=== PATIENT | female | born 1950 | race Caucasian/White ===

== ENCOUNTER 2016-06-28 11:58 | Emergency (ER) | payer OTHER ==
[~2016-06-28] VITALS: Ht 157.5 cm; Wt 62.1 kg
[~2016-06-28 11:58] MED LIST: ACET-1175 PO; ASCO1CAP3 PO; ASPCH81X PO; BUPRTAB51 PO; CALC-393 PO; CHOL100010 PO; CYAN500T13 PO; DOCU100C31 PO; FLNIN NAE; FLUV100T2 PO; FLUV1CAP PO; GLUC500C4 PO; LORA10CA2 PO; MELO15TA3 PO; PRED1SUS3 OPL; PRLSR20 PO; PYRI100T6 PO; SYN88 PO
[2016-06-28 12:07] VITALS: TEMP 36.6; Ht 157.5 cm; Wt 62.1 kg
[2016-06-28] MEDS ORDERED: FAMO20TA11 PO (12:25)
[2016-06-28] MEDS ORDERED: LISI-729 PO (12:25)
[2016-06-28] MEDS ORDERED: LIDOCAINE/EPINEPHRINE 1% 20 ML VIAL INFIL ONE (12:45)
--- NOTE | 2016-06-28 13:25 | DIAGNOSTIC IMAGING REPORT ---
CT SCAN OF THE CERVICAL SPINE CLINICAL HISTORY: Fall. Neck pain COMPARISON STUDY: No priors. TECHNIQUE: CT scan of the cervical spine is performed from the skull base to the upper thoracic spine. Images are reviewed in the axial, sagittal, and coronal planes. IV contrast was not administered for this examination. CT DOSE: 482.55 mGycm FINDINGS: Skeletal structures: The skeletal structures are osteopenic. There is no evidence of fracture or subluxation involving the cervical spine. Vertebral body height is maintained. There is minimal anterolisthesis of C3-C4 and C4-C5. Alignment is otherwise preserved. There is straightening of cervical lordosis. The odontoid process and lateral masses are intact. The atlantoaxial articulation is preserved noting advanced productive degenerative change. The spinous processes appear intact. Anterior osteophytes are seen throughout. There is mild to moderate multilevel cervical spondylosis. Uncovertebral and facet arthropathy contributing to neural foraminal narrowing at several levels. Intervertebral discs: There is moderate degenerative disc space narrowing from C4-C5 through C6-C7. Central canal: Posterior disc osteophyte complexes at C4-C5, C5-C6, and C6-C7 likely contribute to mild acquired compromise of the central canal. Soft tissues: The prevertebral and paraspinous soft tissues are within normal limits. Calvarium: The visualized calvarium at the skull base appears intact. Brain parenchyma: Partially visualized brain parenchyma the skull base is within normal limits. Sinuses and mastoids: The visualized paranasal sinuses are clear. The mastoid air cells are well pneumatized. Lung apices: Clear as visualized. IMPRESSION: 1. There is no evidence of fracture or subluxation involving the cervical spine. 2. Osteopenia and spondylotic change as above. Electronically signed by: Del Rodriguez M.D. 06/28/2016 1:24 PM Dictated Date/Time: 06/28/2016 1:21 PM
--- NOTE | 2016-06-28 13:31 | DIAGNOSTIC IMAGING REPORT ---
HEAD CT NONCONTRAST CT DOSE: 720.95 mGycm HISTORY: Scalp injury. pain s/p fall TECHNIQUE: Multiaxial CT images of the head were performed without the use of intravenous contrast. Automated exposure control was utilized for this study. Comparison: None. Findings: The paranasal sinuses and mastoid air cells are clear. The calvarium and skull base are intact. The ventricles and sulci are within normal limits. There is no mass, hematoma, midline shift, or acute infarct. Left lateral scalp laceration. 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 Small hypodensity within the left subinsular white matter also likely represents an old infarct. Impression: No acute intracranial abnormality. Left lateral scalp laceration Electronically signed by: Serg Gillette M.D. 06/28/2016 1:29 PM Dictated Date/Time: 06/28/2016 1:20 PM
--- NOTE | 2016-06-28 14:28 | EMERGENCY ROOM VISIT NOTE ---
ED Visit Note First contact with patient: 12:10 Chief Complaint: Scalp Laceration History of Present Illness: Patient is a 66-year-old female who presents to the emergency Department for evaluation of a scalp laceration. She reports that she lost her balance while ambulating down steps causing her to fall. She struck her head on the banister. She did not lose consciousness. She was able to gather herself from the ground. The patient complains of pain to the site of injury on the LEFT-sided scalp. She reports a moderate amount of bleeding initially. The patient's tetanus status up-to-date. She denies any blurry vision, double vision, slurred speech, facial droop, unilateral weakness/ numbness, neck stiffness, back pain, chest pain, abdominal pain, or extremity pain. She rates her current discomfort as a 3/10. The patient does not utilize blood thinners. Medications: Reviewed and discussed with the patient. Allergies: Bactrim, Trolamine, Tuberculin Purified Protein Derivat PMH: No pertinent past medical history. SHx: Patient is a 66-year-old female who lives locally. ROS: All pertinent positive and negative review of systems are appropriately documented in the History of Present Illness. Physical Exam: VITAL SIGNS - Vital signs and nursing notes were reviewed. GENERAL - 66-year-old female appearing her stated age. Communicates well with provider and answers questions appropriately. SKIN - There is a 4.0 cm laceration noted to the LEFT sided scalp. The edges gape apart with traction. There is no active bleeding appreciated. No deep structures including vessels, musculature, or bony structures are appreciated. HEAD - Normocephalic. No Matthews's Sign or Raccoon's Eyes. No depressed skull fractures palpable. EYES - PERRL with EOMI bilaterally. Without subconjunctival hemorrhage. Palpebral conjunctiva pink and moist with no injection. EARS - No deformities of external structures noted on gross examination bilaterally. No hemotympanum present. No tympanic perforation noted. Handle of malleus, umbo, cone of light, pars tensa/flaccid all easily visualized. NOSE - Midline and without cyanosis. No epistaxis or clear watery discharge noted. Septum midline without deviation. No septal hematoma noted. No overlying ecchymosis noted. MOUTH/OROPHARYNX - Without perioral cyanosis. Tongue midline with equal elevation of palate bilaterally. No blood noted in the oropharynx. No tonsillar hypertrophy, erythema, or exudates noted. No dental fractures noted. NECK - FROM assessed. No nuchal rigidity. No tenderness to palpation over the cervical spinous processes. No cervical paraspinal muscle tenderness noted. LUNGS - Chest wall symmetric without accessory muscle use, intercostals retractions, or central cyanosis. Normal vesicular breath sounds CTA B/L. No wheezes, rales, or rhonchi appreciated. CARDIAC - RRR with S1/S2. No murmur, rubs, or gallops appreciated. ABDOMEN - Abdominal contour flat without pulsations or visible masses. BS normoactive all four quadrants. EXTREMITIES - No gross deformities noted of the extremities. +3/5 radial and dorsalis pedis pulses palpated throughout. FROM with no tremors, fasciculations , or clonus noted on PROM throughout. +5/5 strength noted in UE/LE bilaterally. NEUROLOGIC - Cranial nerves II through XII grossly intact. Sensory intact to light touch throughout. Patellar reflexes +2/4. Patient able to perform rapid alternating movements appropriately. Negative Romberg and Pronator Drift. PSYCH - A&Ox3 and cooperates fully with examiner. Pt is very pleasant and interacts well with examiner. IMAGING: CHEST ONE VIEW PORTABLE CLINICAL HISTORY: Chest pain. COMPARISON STUDY: Chest CT March 27, 2016. FINDINGS: Lung volumes are normal. There is no pneumothorax or pleural effusion. There is no consolidation to suggest pneumonia. Cardiac size is at the upper limits of normal. There is no evidence of pulmonary edema. IMPRESSION: No acute cardiopulmonary findings. CT SCAN OF THE CERVICAL SPINE CLINICAL HISTORY: Fall. Neck pain COMPARISON STUDY: No priors. TECHNIQUE: CT scan of the cervical spine is performed from the skull base to the upper thoracic spine. Images are reviewed in the axial, sagittal, and coronal planes. IV contrast was not administered for this examination. CT DOSE: 482.55 mGycm FINDINGS: Skeletal structures: The skeletal structures are osteopenic. There is no evidence of fracture or subluxation involving the cervical spine. Vertebral body height is maintained. There is minimal anterolisthesis of C3-C4 and C4-C5. Alignment is otherwise preserved. There is straightening of cervical lordosis. The odontoid process and lateral masses are intact. The atlantoaxial articulation is preserved noting advanced productive degenerative change. The spinous processes appear intact. Anterior osteophytes are seen throughout. There is mild to moderate multilevel cervical spondylosis. Uncovertebral and facet arthropathy contributing to neural foraminal narrowing at several levels. Intervertebral discs: There is moderate degenerative disc space narrowing from C4-C5 through C6-C7. Central canal: Posterior disc osteophyte complexes at C4-C5, C5-C6, and C6-C7 likely contribute to mild acquired compromise of the central canal. Soft tissues: The prevertebral and paraspinous soft tissues are within normal limits. Calvarium: The visualized calvarium at the skull base appears intact. Brain parenchyma: Partially visualized brain parenchyma the skull base is within normal limits. Sinuses and mastoids: The visualized paranasal sinuses are clear. The mastoid air cells are well pneumatized. Lung apices: Clear as visualized. IMPRESSION: 1. There is no evidence of fracture or subluxation involving the cervical spine. 2. Osteopenia and spondylotic change as above. ED Course: Patient was seen and evaluated by myself. CT of head and cervical spine were obtained. Imaging results above. Imaging results were discussed with the patient who acknowledges understanding. Patient had no focal neurological deficits. Patient's exam is otherwise unremarkable. Patient reports no headaches , visual disturbances, nausea, vomiting, or over-lethargy. Costs and benefits of performing primary wound closure versus no repair were discussed with the patient who verbalizes understanding. Verbal consent was obtained prior to performing the procedure. 3.0 cc of 1% buffered lidocaine was used to anesthetize the scalp laceration. The wound was cleansed and prepped in the typical sterile fashion utilizing normal saline and Betadine. The wound was sterilely draped. Once proper anesthetization was established, the wound was further examined and demonstrated a full-thickness laceration without deep structures noted. The wound was copiously irrigated with normal saline and Betadine. The wound was closed using 5 francisca with the wound edges being well approximated. Patient tolerated the procedure well. No complications were met. The wound was cleansed and dressed with a Bacitracin dressing. Patient educated on worrisome symptoms for return visit to the Emergency Department. Patient discharged to home in good condition. Impression: Scalp Laceration, Fall Discharge Instructions: You have received 5 francisca on your scalp. These francisca are NOT dissolvable and WILL need to be removed by a health care provider in 10 days. You can return to the Emergency Department or contact your Primary Care Provider to have these francisca removed. Proper wound care is essential for adequate wound healing and infection prevention. You can shower and clean the wound with soap and water. Do scour over the wound, pat dry with a towel. Do not submerse the wound until the francisca have been removed. You can use an antibiotic ointment with a dressing over the wound for the next 3-4 days. After this time you may leave the wound dry and open to the air. If crust develops over the wound you can use a Q-tip to apply a 1:1 peroxide:water solution to clean the wound. Look for signs of infection of the wound including: increased pain, swelling, foul discharge, streaking, or increased temperature. If any of these are noticed you should return to the Emergency Department for further assessment and treatment. As with any laceration you may have received nerve damage to the surrounding tissues. This damage may or may not be permanent. For pain control, you can use the following [id number] medicines (if >12 yo): - Regular strength (325mg/tab) Tylenol (acetaminophen) 2 tabs every 4-6 hours as needed. Do not exceed 12 tablets in a 24 hour period. Avoid taking more than 4 grams (4000 mg) of Tylenol per day. This includes any other sources of acetaminophen you may take on a regular basis. - Regular strength (200 mg/tab) Advil (ibuprofen) 1-2 tabs every 4-6 hours as needed. Do not exceed a dose of 3200 mg per day. Return to the emergency department if your symptoms worsen despite treatment course outlined above. Problem List Medical Problems: (1) Anxiety Status: Chronic (2) Gastroesophageal reflux disease Status: Chronic (3) Hypothyroidism Status: Chronic Current/Historical Medications Scheduled Acetaminophen (Tylenol), 650 MG PO 2-3X/DAY Ascorbic Acid (Vitamin C), 1 CAP PO QAM Aspirin (Aspirin Chewable), 81 MG PO DAILY AFTERNOON Bupropion Hcl (Wellbutrin Xl), 450 MG PO QAM Calcium Carbonate (Calcium), 1 TAB PO BID Cholecalciferol (Vitamin D), 1,000 INTER.UNIT PO QAM Cyanocobalamin (Vitamin B12 500MCG), 2 TAB PO QAM Docusate Sodium (Docusate Sodium), 2 CAP PO QAM Famotidine (Pepcid), 20 MG PO DAILY Fluvoxamine Maleate (Luvox), 150 MG PO QAM Fluvoxamine Maleate (Fluvoxamine Maleate Er), 1 CAP PO QPM Glucosamine Sulfate (Glucosamine), 500 MG PO BID Levothyroxine (Synthroid *), 0.088 MG PO QAM Lisinopril (Zestril), 2.5 MG PO DAILY Loratadine (Claritin), 10 MG PO QPM Omeprazole (Prilosec), 20 MG PO DAILY Pyridoxine Hcl (Pyridoxine Hcl), 1 TAB PO QAM Allergies Coded Allergies: Apple (Verified Allergy, Intermediate, RAW APPLE-THROAT ITCHES, 06/28/16) RAW APPLES Bath (Verified Allergy, Intermediate, RAW STRAWBERRY-THROAT ITCHES, 06/28/16) RAW STRAWBERRIES Sulfamethoxazole (Verified Allergy, Intermediate, HIVES, 06/28/16) Trimethoprim (Verified Allergy, Intermediate, HIVES, 06/28/16) Trolamine (Verified Allergy, Intermediate, RASH, 06/28/16) Replaces CERUMENEX JUNITO Tuberculin Purified Protein Derivat (Verified Allergy, Mild, RASH, 06/28/16 ) Vital Signs Date Time Temp Pulse Resp B/P Pulse Ox O2 Delivery O2 Flow Rate FiO2 06/28/16 14:35 82 16 119/79 98 06/28/16 12:07 36.6 77 20 129/88 96 Room Air Departure Information Impression Primary Impression: Laceration of scalp Additional Impression: Fall down stairs Dispostion Home / Self-Care Condition GOOD Referrals Chasidy Dubois M.D. (PCP) Patient Instructions ED Laceration Scalp Stitch Or Stap, My [facility] Additional Instructions You have received 5 francisca on your scalp. These francisca are NOT dissolvable and WILL need to be removed by a health care provider in 10 days. You can return to the Emergency Department or contact your Primary Care Provider to have these francisca removed. Proper wound care is essential for adequate wound healing and infection prevention. You can shower and clean the wound with soap and water. Do scour over the wound, pat dry with a towel. Do not submerse the wound until the francisca have been removed. You can use an antibiotic ointment with a dressing over the wound for the next 3-4 days. After this time you may leave the wound dry and open to the air. If crust develops over the wound you can use a Q-tip to apply a 1:1 peroxide:water solution to clean the wound. Look for signs of infection of the wound including: increased pain, swelling, foul discharge, streaking, or increased temperature. If any of these are noticed you should return to the Emergency Department for further assessment and treatment. As with any laceration you may have received nerve damage to the surrounding tissues. This damage may or may not be permanent. For pain control, you can use the following [id number] medicines (if >12 yo): - Regular strength (325mg/tab) Tylenol (acetaminophen) 2 tabs every 4-6 hours as needed. Do not exceed 12 tablets in a 24 hour period. Avoid taking more than 4 grams (4000 mg) of Tylenol per day. This includes any other sources of acetaminophen you may take on a regular basis. - Regular strength (200 mg/tab) Advil (ibuprofen) 1-2 tabs every 4-6 hours as needed. Do not exceed a dose of 3200 mg per day. Return to the emergency department if your symptoms worsen despite treatment course outlined above. Problem Qualifiers Primary Impression: Laceration of scalp Encounter type: initial encounter Qualified Codes: S01.01XA - Laceration without foreign body of scalp, initial encounter Additional Impression: Fall down stairs Encounter type: initial encounter Qualified Codes: W10.8XXA - Fall (on) ( from) other stairs and steps, initial encounter
[2016-06-28 14:35] VITALS: BP 119/79; PULSE 82; O2SAT 98
[2016-11-12] MEDS ORDERED: CALC-354 PO (12:00)
[2016-11-12] MEDS ORDERED: FLUV100T12 PO (12:00)
[2016-11-12] MEDS ORDERED: iron sulfate PO (12:01)
[2016-11-12] MEDS ORDERED: CALC0.2510 PO (12:01)
== END 2016-06-28 14:39 | disposition home or self-care (01) ==
LOC: C.EDB 12:00 → C.EDD 14:39
DX: S01.01XA Laceration without foreign body of scalp, initial encounter (principal); W10.9XXA Fall (on) (from) unspecified stairs and steps, initial encounter; F41.9 Anxiety disorder, unspecified; K21.9 Gastro-esophageal reflux disease without esophagitis; E03.9 Hypothyroidism, unspecified; Z79.82 Long term (current) use of aspirin; Z79.899 Other long term (current) drug therapy

== ENCOUNTER 2016-07-09 17:42 | Emergency (ER) | payer OTHER ==
[~2016-07-09] VITALS: Ht 157.5 cm; Wt 60.9 kg
[~2016-07-09 17:42] MED LIST changes: +FAMO20TA11 PO; -FLNIN NAE; +LISI-729 PO; -MELO15TA3 PO; -PRED1SUS3 OPL
[2016-07-09 17:45] VITALS: BP 113/75; PULSE 92; TEMP 37.1; O2SAT 94; Ht 157.5 cm; Wt 60.9 kg
[2016-07-09] MEDS ORDERED: LEVO88TA3 PO (18:11)
[2016-07-09] MEDS ORDERED: CHOLTAB5 PO (18:12)
--- NOTE | 2016-07-10 20:50 | EMERGENCY ROOM VISIT NOTE ---
ED Visit Note First contact with patient: 17:47 CHIEF COMPLAINT: Staple removal. HISTORY OF PRESENT ILLNESS: Ms. Yu is a 66-year-old white female who ambulates into the ED requesting staple removal for a scalp laceration she sustained during a fall on June 28, 12 days ago. She reports since that time she feels like the laceration has been feeling well and she has not had any pain, swelling, redness, or drainage from the wound. Additionally she reports she has had no signs of head injury including headaches , dizziness, lightheadedness, nausea, vomiting or any abnormal neurological symptoms. PHYSICAL EXAM: Vital Signs: Date Time Temp Pulse Resp B/P Pulse Ox O2 Delivery O2 Flow Rate FiO2 07/09/16 17:45 37.1 92 17 113/75 94 Room Air General: 66-year-old white female in no acute distress, nontoxic-appearing, afebrile and hemodynamically stable. Neurological: Awake, alert and oriented 3. Answering questions appropriately and following commands. Good hand eye coordination. Normal gait. No focal motor sensory deficits. Skin: Clean dry and intact wound on the left parietal area without signs of infection (erythema, swelling, tenderness, purulent drainage) ED COURSE: Patient is assessed as noted above. 5 francisca were removed without any difficulty and there was no separation of the wound edges. Patient was educated about tonight's findings and instructed on her treatment plan; she verbalizes understanding and agreement with this plan. DISPOSITION: Patient discharged home in stable condition. CLINICAL IMPRESSION: Staple removal; Well healing laceration. PLAN: Patient was encouraged to continue her current wound care instructions and continue to watch for signs of infection or head injury. Patient was encouraged return the ED or follow-up with family physician for any signs of infection or head injury or any new/concerning symptoms.
[2016-11-12] MEDS ORDERED: CALC-354 PO (12:00)
[2016-11-12] MEDS ORDERED: FLUV100T12 PO (12:00)
[2016-11-12] MEDS ORDERED: CALC0.2510 PO (12:01)
[2016-11-12] MEDS ORDERED: iron sulfate PO (12:01)
== END 2016-07-09 18:07 | disposition home or self-care (01) ==
LOC: C.EDB 17:43 → C.EDD 18:07
DX: Z48.02 Encounter for removal of sutures (principal); S01.01XD Laceration without foreign body of scalp, subsequent encounter; W19.XXXD Unspecified fall, subsequent encounter

== ENCOUNTER → 2016-07-11 | Outpatient (CLI) | payer OTHER ==
[~2016-07-11] MED LIST changes: +CALC-354 PO; +CALC0.2510 PO; +CHOLTAB5 PO; +FLUV100T12 PO; +LEVO88TA3 PO; +iron sulfate PO
[2016-07-11 16:38] LABS: BASO % 0.4 %; BASO ABS # 0.02 K/uL (0-0.2); COMPLETE YES; EOS % 1.9 %; HEMATOCRIT 32.7 % (37-47); IG% 0.2 %; LYMPH % 25.8 %; LYMPH ABS # 1.47 K/uL (1.2-3.4); MEAN CELL VOLUME 92.1 fL (80-100); MEAN CORPUSCULAR HEMOGLOBIN 29.6 pg (25-34); MEAN CORPUSCULAR HGB CONC 32.1 g/dl (32-36); MEAN PLATELET VOLUME 8.4 fL (7.4-10.4); MONO % 13.5 %; NEUT % 58.2 %; PLATELET COUNT 308 K/uL (130-400); RED BLOOD COUNT 3.55 M/uL (4.2-5.4); WHITE BLOOD COUNT 5.69 K/uL (4.8-10.8)
[2016-07-11 16:59] LABS: BLOOD UREA NITROGEN 24 mg/dl (7-18); BUN/CREATININE RATIO 21.5 (10-20); CALCIUM 8.9 mg/dl (8.5-10.1); CARBON DIOXIDE 26 mmol/L (21-32); CHLORIDE 106 mmol/L (98-107); GLUCOSE 70 mg/dl (70-99); POTASSIUM 4.3 mmol/L (3.5-5.1); SODIUM 141 mmol/L (136-145)
[2016-07-11 17:02] LABS: PHOSPHORUS 2.6 mg/dl (2.5-4.9)
== END | disposition home or self-care (01) ==
LOC: C.LAB 15:31
PROVIDERS: ATTEND Family Medicine
DX: I12.9 Hypertensive chronic kidney disease with stage 1 through stage 4 chronic kidney disease, or unspecified chronic kidney disease (principal); N18.3 Chronic kidney disease, stage 3 (moderate)

== ENCOUNTER → 2016-07-19 | Outpatient (CLI) | payer OTHER ==
[~2016-07-19] MED LIST changes: -CHOL100010 PO; -SYN88 PO
[2016-07-19 19:28] LABS: BASO % 0.2 %; BASO ABS # 0.01 K/uL (0-0.2); COMPLETE YES; EOS % 1.9 %; HEMATOCRIT 31.3 % (37-47); IG% 0.2 %; LYMPH % 29.1 %; LYMPH ABS # 1.72 K/uL (1.2-3.4); MEAN CELL VOLUME 89.4 fL (80-100); MEAN CORPUSCULAR HEMOGLOBIN 29.4 pg (25-34); MEAN CORPUSCULAR HGB CONC 32.9 g/dl (32-36); MEAN PLATELET VOLUME 7.7 fL (7.4-10.4); NEUT % 55.6 %; PLATELET COUNT 254 K/uL (130-400); WHITE BLOOD COUNT 5.92 K/uL (4.8-10.8)
[2016-07-19 19:55] LABS: BLOOD UREA NITROGEN 25 mg/dl (7-18); BUN/CREATININE RATIO 22.7 (10-20); CARBON DIOXIDE 25 mmol/L (21-32); CHLORIDE 105 mmol/L (98-107); GLUCOSE 100 mg/dl (70-99); POTASSIUM 4.3 mmol/L (3.5-5.1); SODIUM 140 mmol/L (136-145)
== END | disposition home or self-care (01) ==
LOC: C.LAB 19:06
PROVIDERS: ATTEND Family Medicine
DX: N18.3 Chronic kidney disease, stage 3 (moderate) (principal); I12.9 Hypertensive chronic kidney disease with stage 1 through stage 4 chronic kidney disease, or unspecified chronic kidney disease

== ENCOUNTER → 2016-09-10 | Outpatient (CLI) | payer OTHER ==
--- NOTE | 2016-09-10 08:49 | DIAGNOSTIC IMAGING REPORT ---
ULTRASOUND OF THE THYROID GLAND CLINICAL HISTORY: Unspecified thyroid disorder. COMPARISON STUDY: No priors. TECHNIQUE: Real-time, grayscale, and color flow sonography of the thyroid gland is performed utilizing a high-frequency linear transducer. Images are reviewed in the transverse and longitudinal planes. FINDINGS: Right lobe: The right lobe of the thyroid gland is normal in size and homogeneous in echotexture, measuring 3.9 x 1.5 x 1.3 cm. There is a 0.5 x 0.3 x 0.5 cm hypoechoic nodule in the anterior midpole. Left lobe: The left lobe of the thyroid gland is normal in size and homogeneous in echotexture, measuring 4.2 x 1.3 x 0.9 cm. A 3 mm hypoechoic nodule is incidentally noted in the upper pole. Isthmus: The thyroid isthmus is normal in appearance and measures 0.2 cm in AP diameter. IMPRESSION: 1. The thyroid gland is normal in size and homogeneous in echotexture. 2. There are 2 subcentimeter thyroid nodules identified. These are of doubtful significance. Electronically signed by: Del Rodriguez M.D. 09/10/2016 8:47 AM Dictated Date/Time: 09/10/2016 8:45 AM
== END | disposition home or self-care (01) ==
LOC: C.ULTR 08:19
PROVIDERS: ATTEND Internal Medicine Endocrinology, Diabetes & Metabolism
DX: E07.9 Disorder of thyroid, unspecified (principal)

== ENCOUNTER → 2016-09-20 | Outpatient (CLI) | payer OTHER ==
[2016-09-20 10:09] LABS: MAGNESIUM 2.3 mg/dl (1.8-2.4)
[2016-09-20 10:11] LABS: ESTIMATED AVERAGE GLUCOSE 114 mg/dl; HA1C FLAG Normal (Normal)
[2016-09-20 10:22] LABS: CHOLESTEROL/HDL RATIO 2.1; THYROID STIMULATING HORMONE 1.08 uIu/ml (0.300-4.500)
[2016-09-20 10:46] LABS: CALCIUM URINE < 5.0 mg/dl; URINE COLLECTION TIME 24 HOURS
[2016-09-20 10:49] LABS: GLUCOSE LOG 1.9243; GLUCOSE,FASTING 84 mg/dl; INSULIN FASTING 8.6 mU/L (3-25); INSULIN LOG 0.9345
[2016-09-20 10:51] LABS: URINE SODIUM 24 HR 128 mmol/24 (40-220)
== END | disposition home or self-care (01) ==
LOC: C.LAB1850 08:20
PROVIDERS: ATTEND Internal Medicine Endocrinology, Diabetes & Metabolism
DX: K21.9 Gastro-esophageal reflux disease without esophagitis (principal); R79.89 Other specified abnormal findings of blood chemistry; E07.9 Disorder of thyroid, unspecified; D64.9 Anemia, unspecified; R73.03 Prediabetes

== ENCOUNTER → 2016-09-27 | Outpatient (CLI) | payer OTHER | END | disposition home or self-care (01) | LOC: C.MAMM 08:47 | PROVIDERS: ATTEND Internal Medicine Endocrinology, Diabetes & Metabolism | DX: E07.9 Disorder of thyroid, unspecified (principal); R79.89 Other specified abnormal findings of blood chemistry; M81.0 Age-related osteoporosis without current pathological fracture; M85.851 Other specified disorders of bone density and structure, right thigh; M85.852 Other specified disorders of bone density and structure, left thigh ==

== ENCOUNTER → 2016-10-19 | Outpatient (CLI) | payer OTHER ==
[2016-10-19 17:23] LABS: BLOOD UREA NITROGEN 26 mg/dl (7-18); BUN/CREATININE RATIO 21.3 (10-20); CARBON DIOXIDE 28 mmol/L (21-32); CHLORIDE 105 mmol/L (98-107); GLUCOSE 89 mg/dl (70-99); POTASSIUM 4.3 mmol/L (3.5-5.1); SODIUM 141 mmol/L (136-145)
[2016-10-23 13:29] LABS: ALBUMIN 4.3 G/DL (3.8-4.8); GAMMA GLOBULIN 0.9 G/DL (0.8-1.7); TOTAL PROTEIN 6.9 G/DL (6.2-8.3)
== END | disposition home or self-care (01) ==
LOC: C.LAB 15:33
PROVIDERS: ATTEND Internal Medicine Endocrinology, Diabetes & Metabolism
DX: E83.51 Hypocalcemia (principal)

== ENCOUNTER → 2016-11-09 | Outpatient (CLI) | payer OTHER ==
[2016-11-09 13:14] LABS: CALCIUM 9.5 mg/dl (8.5-10.1)
== END | disposition home or self-care (01) ==
LOC: C.LAB 11:58
PROVIDERS: ATTEND Internal Medicine Endocrinology, Diabetes & Metabolism
DX: E21.3 Hyperparathyroidism, unspecified (principal); E83.59 Other disorders of calcium metabolism

== ENCOUNTER → 2016-11-12 | Day surgery (SDC) | payer OTHER ==
[~2016-11-12] VITALS: Ht 157.5 cm; Wt 59.0 kg
[~2016-11-12] MED LIST changes: +GENERAL ORDER PROBLEM SCH; +ZOLEDRONIC ACID 5 MG/100 ML VIAL IV SCH
[2016-11-12 11:51] VITALS: BP 121/74; PULSE 100; TEMP 36.7; O2SAT 99; Ht 157.5 cm; Wt 59.0 kg
--- NOTE | 2016-11-13 12:06 | EDITING REQUIRED CODING QUERY ---
TREATMENT RENDERED WITHOUT A DIAGNOSIS To promote full compliance with coding requirements relating to patient care, physician participation is requested in all cases of attorney uncertainty. Please assist us with the question(s) below: Coding Question: The patient is receiving IV RECLAST, as noted in the ORDER HISTORY of the record. Please document the diagnosis that is being addressed by the medication/treatment. Provider Response: Thank you Silvia Verdugo
--- NOTE | 2016-11-30 08:58 | CODING QUERY NO DIAGNOSIS ---
TREATMENT RENDERED WITHOUT A DIAGNOSIS To promote full compliance with coding requirements relating to patient care, physician participation is requested in all cases of motorman/woman uncertainty. Please assist us with providing a diagnosis/symptom for the test(s) below: A diagnosis/symptom was not documented on your Order. A valid diagnosis/symptom is required to bill all insurances. Please remember that we are unable to code a diagnosis of rule out, probable, possible, questionable, or suspected. Tests that require a diagnosis: * IV RECLAST DIAGNOSIS: * DOS: 11/12/16 Provider Signature: Date: Thank you Silvia Verdugo Health Information Management Once completed, please kindly fax back to [phone] For questions please call [phone]
== END | disposition home or self-care (01) ==
LOC: C.MTU 11:44
PROVIDERS: ATTEND Internal Medicine Endocrinology, Diabetes & Metabolism
DX: E83.59 Other disorders of calcium metabolism (principal); M81.0 Age-related osteoporosis without current pathological fracture; E21.3 Hyperparathyroidism, unspecified

== ENCOUNTER → 2016-11-26 | Outpatient (CLI) | payer OTHER ==
[~2016-11-26] MED LIST changes: -CALC-393 PO; -CHOLTAB5 PO; -FLUV1CAP PO; -GENERAL ORDER PROBLEM SCH; -ZOLEDRONIC ACID 5 MG/100 ML VIAL IV SCH
[2016-11-26 17:40] LABS: CALCIUM 9.3 mg/dl (8.5-10.1)
== END | disposition home or self-care (01) ==
LOC: C.LAB 16:57
PROVIDERS: ATTEND Internal Medicine Endocrinology, Diabetes & Metabolism
DX: E21.3 Hyperparathyroidism, unspecified (principal)

== ENCOUNTER → 2017-01-09 | Outpatient (CLI) | payer OTHER ==
--- NOTE | 2017-01-09 12:23 | MAMMOGRAPHY REPORT ---
BILATERAL DIGITAL SCREENING MAMMOGRAM TOMOSYNTHESIS WITH CAD: 01/09/2017 CLINICAL HISTORY: Routine screening. Patient has no complaints. TECHNIQUE: Breast tomosynthesis in addition to standard 2D mammography was performed. Current study was also evaluated with a Computer Aided Detection (CAD) system. COMPARISON: Comparison is made to exams dated: 11/16/2015 mammogram, 05/05/2015 mammogram, 04/21/2015 mammogram, 01/01/2014 mammogram, 12/10/2012 mammogram, and 06/29/2011 mammogram - [facility] enter. BREAST COMPOSITION: The tissue of both breasts is heterogeneously dense, which may obscure small mas ses. FINDINGS: There are scattered benign calcifications and stable groupings of benign punctate microcalc ifications in the breasts. No new suspicious mass, architectural distortion or cluster of microcalci fications is seen. IMPRESSION: ACR BI-RADS CATEGORY 1: NEGATIVE There is no mammographic evidence of malignancy. A 1 year screening mammogram is recommended. The pa tient will receive written notification of the results. Approximately 10% of breast cancers are not detected with mammography. A negative mammographic report should not delay biopsy if a clinically suggestive mass is present. Winifred Russo M.D. ay/:01/09/2017 08:09:20 [employer] Trimmer: Dalila VIVEROS)(Tony), [facility] letter sent: Normal 1/2 BI-RADS Code: ACR BI-RADS Category 1: Negative
== END | disposition home or self-care (01) ==
LOC: C.MAMM 07:27
PROVIDERS: ATTEND Family Medicine
DX: Z12.31 Encounter for screening mammogram for malignant neoplasm of breast (principal); R92.1 Mammographic calcification found on diagnostic imaging of breast; R92.0 Mammographic microcalcification found on diagnostic imaging of breast

== ENCOUNTER → 2017-01-10 | Outpatient (CLI) | payer OTHER ==
[2017-01-10 19:55] LABS: HEMATOCRIT 37.2 % (37-47); MEAN CELL VOLUME 98.2 fL (80-100); MEAN CORPUSCULAR HEMOGLOBIN 31.4 pg (25-34); MEAN PLATELET VOLUME 8.8 fL (7.4-10.4); PLATELET COUNT 252 K/uL (130-400); RED BLOOD COUNT 3.79 M/uL (4.2-5.4); WHITE BLOOD COUNT 5.93 K/uL (4.8-10.8)
[2017-01-10 20:19] LABS: TOTAL IRON BINDING CAPACITY 337 mcg/dl (250-450)
== END | disposition home or self-care (01) ==
LOC: C.LAB 17:51
PROVIDERS: ATTEND Family Medicine
DX: D64.9 Anemia, unspecified (principal)

== ENCOUNTER → 2017-03-25 | Outpatient (CLI) | payer OTHER ==
[2017-03-25 17:55] LABS: ALT/SGPT 42 U/L (12-78); BLOOD UREA NITROGEN 25 mg/dl (7-18); CALCIUM 9.6 mg/dl (8.5-10.1); CARBON DIOXIDE 29 mmol/L (21-32); CHLORIDE 102 mmol/L (98-107); GLUCOSE 88 mg/dl (70-99); POTASSIUM 4.2 mmol/L (3.5-5.1); SODIUM 137 mmol/L (136-145)
[2017-03-25 17:58] LABS: ALKALINE PHOSPHATASE 49 U/L (45-117); AST/SGOT 28 U/L (15-37)
== END | disposition home or self-care (01) ==
LOC: C.LAB1850 16:52
PROVIDERS: ATTEND Internal Medicine Endocrinology, Diabetes & Metabolism
DX: E03.9 Hypothyroidism, unspecified (principal); M81.0 Age-related osteoporosis without current pathological fracture; E21.3 Hyperparathyroidism, unspecified; E83.59 Other disorders of calcium metabolism; R79.89 Other specified abnormal findings of blood chemistry

== ENCOUNTER → 2017-08-02 | Outpatient (CLI) | payer OTHER | END | disposition home or self-care (01) | LOC: C.LAB 16:03 | PROVIDERS: ATTEND Psychiatry & Neurology Child & Adolescent Psychiatry | DX: F33.42 Major depressive disorder, recurrent, in full remission (principal) ==

== ENCOUNTER 2021-01-31 16:06 | Inpatient (IN) ==
[2021-01-31 16:37] LABS: Basophils # (auto) 0.03 K/uL (0-0.2); Basophils % (auto) 0.2 %; Eosinophils # (auto) 0.12 K/uL (0-0.5); Eosinophils % (auto) 0.8 %; Hematocrit (blood only) 42.7 % (37-47); Hemoglobin 14.6 g/dL (12.0-16.0); Immature Granulocytes # (auto) 0.05 K/uL (0.00-0.02); Immature Granulocytes % (auto) 0.3 %; Lymphocytes # (auto) 1.51 K/uL (1.2-3.4); Lymphocytes % (auto) 9.9 %; Mean Corpuscular Hemoglobin 32.7 pg (25-34); Mean Corpuscular Hgb Conc 34.2 g/dL (32-36); Mean Corpuscular Volume 95.5 fL (80-100); Mean Platelet Volume 8.8 fL (7.4-10.4); Monocytes # (auto) 1.86 K/uL (0.11-0.59); Monocytes % (auto) 12.2 %; Neutrophils # (auto) 11.65 K/uL (1.4-6.5); Neutrophils % (auto) 76.6 %; Platelet Count 223 K/uL (130-400); RDW Standard Deviation 48.9 fL (36.4-46.3); Red Blood Count 4.47 M/uL (4.2-5.4); White Blood Count 15.22 K/uL (4.8-10.8)
[2021-01-31 16:50] LABS: Partial Thromboplastin Time 26.1 Seconds (21.0-31.0); Prothrombin Time 10.6 Seconds (9.0-12.0)
[2021-01-31 16:58] LABS: Alanine Aminotransferase 192 U/L (12-78); Albumin Level 3.8 gm/dl (3.4-5.0); Aspartate Aminotransferase 94 U/L (15-37); BUN Creatinine Ratio 13.8 (10-20); Blood Urea Nitrogen 16 mg/dl (7-18); Calcium 9.3 mg/dl (8.5-10.1); Carbon Dioxide 25 mmol/L (21-32); Chloride 102 mmol/L (98-107); Creatinine Clr Calc Pharmacy 36.9 ml/min; Est GFR (African American) 55.4 ml/min; Est GFR (Non-African American) 47.8 ml/min; Glucose 130 mg/dl (70-99); Potassium 4.1 mmol/L (3.5-5.1); Sodium 135 mmol/L (136-145)
[2021-01-31 17:02] LABS: Albumin Globulin Ratio 0.9 (0.9-2); Alkaline Phosphatase 203 U/L (45-117); Bilirubin,Total 0.4 mg/dl (0.2-1); Globulin 4.5 gm/dl (2.5-4.0); Total Protein 8.3 gm/dl (6.4-8.2); Troponin I < 0.015 ng/ml (0-0.045)
--- NOTE | 2021-01-31 19:30 | XRay Report ---
SINGLE VIEW CHEST CLINICAL HISTORY: Atypical chest pain. FINDINGS: An AP, portable, upright chest radiograph is compared to study dated 03/21/2015. The cardio mediastinal silhouette is top normal for projection noting atherosclerotic calcification of the thora cic aorta. The lungs and pleural spaces are clear. No pneumothorax is seen. The skeletal structures a re osteopenic. The bony thorax is grossly intact. IMPRESSION: No active disease in the chest. ACT 112: Negative or not required by law. Electronically signed by: Del Rodriguez M.D. 01/31/2021 7:28 PM
--- NOTE | 2021-01-31 21:00 | Ultrasound Report ---
ULTRASOUND RIGHT UPPER QUADRANT ABDOMEN CLINICAL HISTORY: Right upper quadrant abdominal pain. Elevated hepatic transaminases. COMPARISON STUDY: Abdominal ultrasound dated 01/29/2013. TECHNIQUE: Real-time, grayscale, and color flow sonography of the right upper quadrant of the abdomen was performed. Images are reviewed in the transverse and longitudinal planes. FINDINGS: Liver: The liver is heterogeneous in echotexture and infiltrated by numerous hypoechoic mass lesions. The largest is in the right lobe and measures up to 3.2 cm. There is no intrahepatic biliary ductal dilatation. The main portal vein is patent. Gallbladder: The gallbladder is normal in appearance. No gallstones are identified. There is no gallb ladder wall thickening or pericholecystic fluid. A sonographic Man's sign is reportedly absent. Th e common bile duct measures up to 0.3 cm in diameter. Pancreas: Visualized portions of the pancreatic head and body are normal in appearance. The splenic v ein is patent. Right kidney: Survey images of the right kidney demonstrate normal size and echotexture. There is no hydronephrosis. Ascites: None. IMPRESSION: 1. The liver is infiltrated by numerous mass lesions. This is new from 01/29/2013 and highly concernin g for hepatic metastatic disease. Correlate with the patient's medical/oncological history. 2. There are no gallstones or evidence of acute cholecystitis. ACT 112: Negative or not required by law. Electronically signed by: Del Rodriguez M.D. 01/31/2021 8:59 PM
[2021-01-31] MEDS ORDERED: OPTIRAY 320 125ml IV ONE (21:37)
[2021-01-31] MEDS ORDERED: Heparin IV Adult Wt-Based Standard WITH Bolus Protocol IV STA (22:13)
--- NOTE | 2021-01-31 22:18 | Emergency Department Note ---
History of Present Illness General Chief complaint: Cardiac Assessment Stated complaint: TIGHTNESS IN CHEST, NAUSEA, FATIGUE, RAPID PULSE Source: patient and RN notes reviewed Mode of arrival: ambulatory Limitations: no limitations History of Present Illness Provider complaint: Left upper chest pain, fatigue, lack of appetite, tachycardia Maximum Pain Intensity: 2 This patient is a 71-year-old female who presents to the emergency department with complaints of left upper chest discomfort that is periodically worse with exertion or deep breathing. She states she also is having some dizziness, tachycardia, poor appetite. She has lost 4 pounds in the last week which she relates to no desire to eat. Patient has been having normal bowel movements. Patient states she still has a gallbladder and denies any pain after eating. She denies fevers, chills, coughing, vomiting. She does admit to some occasional gastritis. Home Medications Medication Instructions Recorded Confirmed Type ascorbic acid (vitamin C) 500 mg 500 mg PO PM tab 02/16/19 01/31/21 History tablet cyanocobalamin (vitamin B-12) 500 500 mcg PO QAM tab 02/16/19 01/31/21 History mcg tablet famotidine 20 mg tablet 20 mg PO BID tab 02/16/19 01/31/21 History fluvoxamine 100 mg tablet 100 mg PO .COMPLEX tab 02/16/19 01/31/21 History glucosamine sulfate 500 mg capsule 500 mg PO BID cap 02/16/19 01/31/21 History loratadine 10 mg capsule 10 mg PO HS #30 cap 02/16/19 01/31/21 History losartan 25 mg tablet 12.5 mg PO HS tab 02/16/19 01/31/21 History pyridoxine (vitamin B6) 50 mg 50 mg PO PM tab 02/16/19 01/31/21 History tablet denosumab 60 mg/mL subcutaneous 60 mg SUBCUT .every 6 months #1 ml 04/13/20 Rx syringe (Prolia) acetaminophen 325 mg tablet 650 mg PO Q8 PRN 01/31/21 01/31/21 History (Tylenol) acetaminophen 650 mg 650 mg PO HS PRN 01/31/21 01/31/21 History tablet,extended release (Tylenol Arthritis Pain) aluminum-mag hydroxide-simethicone 20 ml PO HS PRN 01/31/21 01/31/21 History 200 mg-200 mg-20 mg/5 mL oral susp aspirin 81 mg tablet,delayed 81 mg PO HS 01/31/21 01/31/21 History release (Aspirin Low Dose) bupropion HCl 150 mg 24 hr tablet, 150 mg PO QAM 01/31/21 01/31/21 History extended release (Wellbutrin XL) calcitriol 0.25 mcg capsule 0.25 mcg PO QAM 01/31/21 01/31/21 History calcium carb 300 mg-D3 800 2 tab PO PM 01/31/21 01/31/21 History unit-mag ox 25 mg-copyright manager 0.5 mg-jesusita-Zn tablet (Caltrate + D3 Plus Minerals) docusate sodium 100 mg capsule 100 mg PO PM 01/31/21 01/31/21 History (Colace) levothyroxine 75 mcg tablet 75 mcg PO QAM 01/31/21 01/31/21 History olopatadine 0.1 % eye drops 1 drp OPB BID 01/31/21 01/31/21 History (Pataday Twice Daily Relief) Allergies Allergy/AdvReac Type Severity Reaction Status Date / Time apple Allergy Intermediate RAW Verified 01/31/21 20:39 APPLE-THROAT ITCHES strawberry Allergy Intermediate RAW Verified 01/31/21 20:39 STRAWBERRY-THROAT ITCHES sulfamethoxazole Allergy Intermediate HIVES Verified 01/31/21 20:39 trimethoprim Allergy Intermediate HIVES Verified 01/31/21 20:39 trolamine salicylate Allergy Intermediate RASH Verified 01/31/21 20:39 tuberculin, purified protein Allergy Mild RASH Verified 01/31/21 20:39 deriva Past Med/Surg History Medical History Vickie's thyroiditis Hypothyroid Osteoporosis Solitary thyroid nodule Vitamin D deficiency Social History Smoking Status: Never smoker Do You Dip or Chew Tobacco: No; Hx Alcohol Use: Yes Hx Substance Use: No Preferred Language: Luxembourgish Communication Ability: Effective Editor Producer Required: No Beliefs That Will Affect Care: None Current Living Situation: Spouse Other Information That Helps Us Care for You: No Feels Safe at Home: Yes Safety Concerns: Feels Safe At This Time Assistive Devices: Glasses Review of Systems See HPI for pertinent positives & negatives. and A total of 10 systems reviewed and were otherwise negative Physical Exam Vital Signs Vital Signs - 24 hr 01/31/21 19:54 01/31/21 21:00 01/31/21 21:37 Pulse Rate [Radial] 94 H 94 H 90 Respiratory Rate 16 18 16 Respiratory Effort / Characteristics Respiratory Depth Blood Pressure [Left Arm] 130/98 170/107 H 157/96 H Blood Pressure Mean [Left Arm] 108 128 116 Pulse Oximetry 97 97 97 Oxygen Delivery Method Room Air Room Air Room Air 01/31/21 22:50 Pulse Rate [Radial] 90 Respiratory Rate 18 Respiratory Effort / Characteristics Non-Labored Respiratory Depth Normal Blood Pressure [Left Arm] 140/98 Blood Pressure Mean [Left Arm] 112 Pulse Oximetry 96 Oxygen Delivery Method Room Air Vital signs reviewed. General: Well-appearing 71-year-old female, in no significant distress. HEENT: No scleral icterus, PERRLA, neck supple. Atraumatic. Cardiovascular: Regular rate and rhythm, no extra sounds. Pulmonary: Clear to auscultation bilaterally, normal work of breathing. Abdomen: Soft, mild right upper quadrant tenderness, nondistended, positive bowel sounds. Musculoskeletal: Atraumatic, no peripheral edema. Neurologic: Patient awake alert and oriented x 3 Skin: Warm, dry, no rash Course Administered Medications Acetaminophen (Acetaminophen 325 Mg Tab) 325 mg PO Q6H PRN PRN Reason: Mild Pain Stop: 03/03/21 02:30 Last Admin: 02/01/21 03:08 Dose: 325 mg Documented by: [id number] Acetaminophen (Acetaminophen 325 Mg Tab) 325 mg PO TID [facility] Stop: 03/03/21 08:59 Last Admin: 02/01/21 13:50 Dose: 325 mg Documented by: [id number] Admin: 02/01/21 08:23 Dose: 325 mg Documented by: [id number] Bupropion HCl (Bupropion Xl 150 Mg Tabcr) 150 mg PO QAM [facility] Stop: 03/03/21 08:59 Last Admin: 02/01/21 08:23 Dose: 150 mg Documented by: [id number] Famotidine (Famotidine 20 Mg Tab) 20 mg PO DAILY [facility]; Protocol Stop: 03/03/21 08:59 Last Admin: 02/01/21 08:24 Dose: 20 mg Documented by: [id number] Fluvoxamine Maleate (Fluvoxamine Maleate 50 Mg Tab) 150 mg PO QAM [facility] Stop: 03/03/21 08:59 Last Admin: 02/01/21 08:24 Dose: 150 mg Documented by: [id number] Heparin Sodium/Dextrose (Heparin Sodium/Dextrose) 25,000 units in 500 mls @ 18 mls/hr IV .Q24H DASHAWN; Protocol Stop: 02/01/21 18:00 Last Titration: 02/01/21 06:13 Dose: 900 units/hr, 18 mls/hr Documented by: [id number] Cosigned by: [id number] Admin: 01/31/21 22:24 Dose: 900 units/hr, 18 mls/hr Documented by: [id number] Cosigned by: [id number] Sodium Chloride (Nss 1000ml) 1,000 mls @ 60 mls/hr IV .[id number] [facility] Stop: 03/03/21 02:30 Last Admin: 02/01/21 02:39 Dose: 60 mls/hr Documented by: [id number] Levothyroxine Sodium (Levothyroxine Sodium 75 Mcg Tablet) 75 mcg PO DAILYBB [facility] Stop: 03/03/21 06:29 Last Admin: 02/01/21 06:07 Dose: 75 mcg Documented by: [id number] Losartan Potassium (Losartan Potassium 25 Mg Tab) 12.5 mg PO HS [facility] Stop: 03/03/21 04:44 Last Admin: 02/01/21 06:07 Dose: 12.5 mg Documented by: [id number] Miscellaneous (*Pataday*Order Awaiting Action) 1 ea N/A QS [facility] Stop: 03/03/21 07:59 Last Admin: 02/01/21 15:15 Dose: Not Given Documented by: [id number] Admin: 02/01/21 08:11 Dose: Not Given Documented by: [id number] Discontinued Medications Heparin Sodium (Porcine) (Heparin Sod (Porcine) 1000 Unit/Ml) 1 units IV NOW ONE Stop: 01/31/21 22:29 Last Admin: 01/31/21 22:30 Dose: 4,000 units Documented by: [id number] Cosigned by: [id number] Heparin Sodium/Dextrose (Heparin Iv Adult Wt-Based Standard With Bolus Protocol) 1 ea IV NOW STA; Protocol Stop: 01/31/21 22:14 Last Admin: 02/01/21 07:13 Dose: Not Given Documented by: [id number] Ioversol (Optiray 320 125ml) 119 ml IV ONCE ONE Stop: 01/31/21 21:38 Last Admin: 01/31/21 21:37 Dose: 119 ml Documented by: [id number] Critical Care Time Critical Care Time: Yes Total Critical Care Time: 35 I have personally spent 35 minutes of critical care time in the direct management of this patient. This was a life threatening event. This 35 minutes is in excess of all separately billable procedures. Medical Decision Making Differential Diagnosis Cardiac ischemia, aortic dissection, pulmonary embolism, pneumothorax, p neumonia, pericarditis, myocarditis, esophageal rupture, GERD, cholecystitis, pancreatitis, musculoskeletal, as well as other pathologies. Medical Records Attestation: I reviewed the patient's medical records. Home Medications Current Medication List: was personally reviewed by me Laboratory Data Attestation: I reviewed the patient's lab results. Result diagrams: 02/01/21 04:52 02/01/21 04:52 Lab Results 01/31/21 01/31/21 01/31/21 Range/Units 16:24 16:24 16:24 WBC 15.22 H (4.8-10.8) K/uL RBC 4.47 (4.2-5.4) M/uL Hgb 14.6 (12.0-16.0) g/dL Hct 42.7 (37-47) % MCV 95.5 (80-100) fL MCH 32.7 (25-34) pg MCHC 34.2 (32-36) g/dL RDW Std Deviation 48.9 H (36.4-46.3) fL RDW Coeff of French 14.0 (11.5-14.5) % Plt Count 223 (130-400) K/uL MPV 8.8 (7.4-10.4) fL Immature Gran % (Auto) 0.3 % Neut % (Auto) 76.6 % Lymph % (Auto) 9.9 % [place] % (Auto) 12.2 % Eos % (Auto) 0.8 % Baso % (Auto) 0.2 % Neut # (Auto) 11.65 H (1.4-6.5) K/uL Lymph # (Auto) 1.51 (1.2-3.4) K/uL [place] # (Auto) 1.86 H (0.11-0.59) K/uL Eos # (Auto) 0.12 (0-0.5) K/uL Baso # (Auto) 0.03 (0-0.2) K/uL Immature Gran # (Auto) 0.05 H (0.00-0.02) K/uL PT 10.6 (9.0-12.0) Seconds INR 1.0 (0.9-1.1) APTT 26.1 (21.0-31.0) Seconds PTT Ratio 1.0 Sodium 135 L (136-145) mmol/L Potassium 4.1 (3.5-5.1) mmol/L Chloride 102 (98-107) mmol/L Carbon Dioxide 25 (21-32) mmol/L Anion Gap 8.0 (3-11) BUN 16 (7-18) mg/dl Creatinine 1.17 (0.6-1.2) mg/dl Est Cr Clr Drug Dosing 36.9 ml/min Est GFR ( Amer) 55.4 ml/min Est GFR (Non-Af Amer) 47.8 ml/min BUN/Creatinine Ratio 13.8 (10-20) Glucose 130 H (70-99) mg/dl Estimat Average Glucose mg/dl Hemoglobin A1c (4.5-5.6) % Calcium 9.3 (8.5-10.1) mg/dl Total Bilirubin 0.4 (0.2-1) mg/dl AST 94 H (15-37) U/L ALT 192 H (12-78) U/L Alkaline Phosphatase 203 H (45-117) U/L Troponin I < 0.015 (0-0.045) ng/ml Total Protein 8.3 H (6.4-8.2) gm/dl Albumin 3.8 (3.4-5.0) gm/dl Globulin 4.5 H (2.5-4.0) gm/dl Albumin/Globulin Ratio 0.9 (0.9-2) Lipase 278 (73-393) U/L TSH 1.970 (0.300-4.500) uIu/ml COVID-19 Eval Order SARS-CoV-2 (PCR) (Negative) 01/31/21 01/31/21 01/31/21 Range/Units 16:24 20:00 20:00 WBC (4.8-10.8) K/uL RBC (4.2-5.4) M/uL Hgb (12.0-16.0) g/dL Hct (37-47) % MCV (80-100) fL MCH (25-34) pg MCHC (32-36) g/dL RDW Std Deviation (36.4-46.3) fL RDW Coeff of French (11.5-14.5) % Plt Count (130-400) K/uL MPV (7.4-10.4) fL Immature Gran % (Auto) % Neut % (Auto) % Lymph % (Auto) % [place] % (Auto) % Eos % (Auto) % Baso % (Auto) % Neut # (Auto) (1.4-6.5) K/uL Lymph # (Auto) (1.2-3.4) K/uL [place] # (Auto) (0.11-0.59) K/uL Eos # (Auto) (0-0.5) K/uL Baso # (Auto) (0-0.2) K/uL Immature Gran # (Auto) (0.00-0.02) K/uL PT (9.0-12.0) Seconds INR (0.9-1.1) APTT (21.0-31.0) Seconds PTT Ratio Sodium (136-145) mmol/L Potassium (3.5-5.1) mmol/L Chloride (98-107) mmol/L Carbon Dioxide (21-32) mmol/L Anion Gap (3-11) BUN (7-18) mg/dl Creatinine (0.6-1.2) mg/dl Est Cr Clr Drug Dosing ml/min Est GFR ( Amer) ml/min Est GFR (Non-Af Amer) ml/min BUN/Creatinine Ratio (10-20) Glucose (70-99) mg/dl Estimat Average Glucose 137 mg/dl Hemoglobin A1c 6.4 H (4.5-5.6) % Calcium (8.5-10.1) mg/dl Total Bilirubin (0.2-1) mg/dl AST (15-37) U/L ALT (12-78) U/L Alkaline Phosphatase (45-117) U/L Troponin I (0-0.045) ng/ml Total Protein (6.4-8.2) gm/dl Albumin (3.4-5.0) gm/dl Globulin (2.5-4.0) gm/dl Albumin/Globulin Ratio (0.9-2) Lipase (73-393) U/L TSH (0.300-4.500) uIu/ml COVID-19 Eval Order Covid19 at [facility] SARS-CoV-2 (PCR) NEGATIVE (Negative) Imaging Data Radiologist's Impression: Abdomen/Pelvis CT 01/31/21 21:00 CT OF THE ABDOMEN AND PELVIS WITH CONTRAST CLINICAL HISTORY: Liver masses. COMPARISON STUDY: Right upper quadrant ultrasound January 29, 2013 and January 31, 2021. TECHNIQUE: Following IV administration of 119 mL of Optiray, axial images of the abdomen and pelvis were obtained from the lung bases to the proximal femurs. Images were reviewed in the axial, sagittal, and coronal planes. IV contrast was administered without complication. Automated exposure control was utilized for the study. A dose lowering technique was utilized adhering to the principles of ALARA. FINDINGS: A small segmental pulmonary embolus within the left lower lobe is not ed on the chest CT which will be reported separately. Numerous bilobar hepatic lesions are noted. These measure up to 3.8 cm. These are new since ultrasound of January 29, 2013. Note is made of the heterogeneous pancreatic tail mass that measures 4.6 x 2.4 x 3.8 cm. This results in occlusion of the splenic vein. There is no biliary or pancreatic ductal dilatation. Associated perigastric varices are noted. The spleen, adrenal glands and kidneys are unremarkable. There is a 2.2 cm heterogeneous lesion along the right lateral aspect of the celiac axis. This favors a pathologic lymph node. A few additional mildly enlarged upper abdominal lymph nodes are noted. There is no evidence for a bowel obstruction. The superior mesenteric vein and artery are patent. There is mild narrowing of the main portal vein likely due to lymphadenopathy. No suspicious lesions are identified within the visualized skeletal structures. IMPRESSION: 1. 4.6 x 2.4 x 3.8 cm pancreatic tail lesion highly suggestive of pancreatic adenocarcinoma. Numerous hepatic metastases. 2. Several mildly enlarged upper abdominal lymph nodes suggestive of juan r spread of disease. 3. No bowel obstruction. 4. Segmental pulmonary embolus within the left lower lobe which is depicted on the chest CT. This will be reported separately. ACT 112: Negative or not required by law. Electronically signed by: Jagdish Hensley M.D. 02/01/2021 8:31 AM Chest CTA 01/31/21 21:01 CT ANGIOGRAPHY OF THE CHEST, PULMONARY EMBOLUS PROTOCOL CLINICAL HISTORY: PE, tachycardia, liver masses COMPARISON STUDY: Chest radiograph December 08, 2013 and January 31, 2021. TECHNIQUE: Following IV administration of 119 mL of Optiray, helical axial images of the chest were obtained utilizing the pulmonary embolus protocol. Maximal intensity projections and sagittal and coronal reformats were viewed on an independent 3D workstation. IV contrast was administered without complication. Automated exposure control was utilized for the study. A dose lowering technique was utilized adhering to the principles of ALARA. CT DOSE: 527.04 mGy.cm FINDINGS: There is a small segmental pulmonary embolus within the left lower lobe on image 175 of 316. No additional pulmonary emboli are identified. Mild cardiomegaly is noted. No pericardial effusion. There is no thoracic lymphadenopathy. There is no consolidation to suggest pneumonia. Groundglass opacities within the lungs favor atelectasis or air-trapping. Numerous hepatic masses are better depicted on the CT of the abdomen and pelvis which will be reported separately. Pancreatic tail mass is also better depicted on that exam. IMPRESSION: 1. Small segmental pulmonary embolus within the left lower lobe. 2. Hepatic metastases and a pancreatic tail mass which are better depicted on the CT of the abdomen and pelvis. This will be reported separately. ACT 112: Negative or not required by law. Electronically signed by: Jagdish Hensley M.D. 02/01/2021 8:24 AM Venous Doppler Study 01/31/21 23:38 BILATERAL LOWER EXTREMITY VENOUS DOPPLER CLINICAL HISTORY: pe santacruz COMPARISON STUDY: Bilateral lower extremity venous Doppler ultrasound March 30, 2012. TECHNIQUE: Sonography of the deep venous system of the bilateral lower extremities was performed. Compression and augmentation were evaluated. FINDINGS: The bilateral common femoral, superficial femoral and popliteal veins were compressible. Augmentation was normal. Flow was shown within the deep calf vessels. IMPRESSION: No evidence of deep venous thrombus within the bilateral lower extremities. ACT 112: Negative or not required by law. Electronically signed by: Jagdish Hensley M.D. 02/01/2021 7:03 AM ECG Data Attestation: I personally reviewed and interpreted this ECG as follows: Indication: + tachycardia Rate (beats per minute): 106 Rhythm: + sinus tachycardia ECG Intervals/blocks: + Normal QRS and + Prolonged QT ECG [place]: + Normal ECG ST segments: + Nonspecific ST abnormalities and + repolarization ab normalities (anterior) ECG Findings: no PACs or no PVCs Blood Pressure Blood Pressure Findings: Elevated blood pressure Blood Pressure Disposition: elevated BP felt to be situational MDM Narrative This patient was evaluated and appeared to be in no significant distress. IV access was obtained and laboratory work was drawn. An order for cardiac monitoring was placed and the patient is noted to be in a sinus tachycardia at 106 bpm. EKG was performed and reveals nonspecific ST abnormality. Patient was hydrated with normal saline solution. Patient's vital signs have remained stable otherwise. There is no oxygen requirement. Ultrasound of the right upper quadrant was performed as the patient's liver enzymes were mildly elevated and she had some right upper quadrant tenderness on exam. Patient's right upper quadrant ultrasound reveals multiple liver masses consistent with metastasis. CT imaging of the chest was ordered secondary to the tachycardia to rule out PE and then abdomen pelvis to better delineate the metastases and to hopefully identify primary source. There is a mass on the tail of the pancreas. Patient was informed of the findings. She was started on a heparin drip for the PE in anticipation of possible procedure tomorrow for further diagnostics. The hospitalist was consulted, Dr. Santos for further management. Patient and h usband were made aware of the plan and agree. Impression & Plan Acute pulmonary embolism, Pancreatic mass, Liver masses Discharge Plan Visit Data Chief Complaint: Cardiac Assessment Stated Complaint: TIGHTNESS IN CHEST, NAUSEA, FATIGUE, RAPID PULSE ED Provider: Marian Valladares Discharge Problem: Acute pulmonary embolism, Pancreatic mass, Liver masses Patient Disposition: Admitted As Inpatient Discharge Instructions Interventions: ED Discharge Assessment Last Done: 02/01/21 01:47 Discharge Problem: Acute pulmonary embolism Qualifiers: Pulmonary embolism type: other Acute cor pulmonale presence: unspecified Qualified Code(s): I26.99 - Other pulmonary embolism without acute cor pulmonale
[2021-01-31] MEDS ORDERED: HEPARIN SOD (PORCINE) 1000 UNIT/ML IV ONE (22:28)
[2021-01-31] MEDS ORDERED: HEPARIN SODIUM/DEXTROSE 25,000 UNITS/500 ML BAG IV SCH (22:30)
--- NOTE | 2021-01-31 23:38 | History & Physical Report ---
Date of Service January 31, 2021 Assessment & Plan (1) Acute pulmonary embolism: Plan: First occurrence Possibly related to pancreatic mass probable malignancy Rule out LE clot as source hypertension, slight elevated PFO with atrial septal aneurysm nonobstructive CAD as per records OCD, mood disorder, at baseline CRI, creatinine better than baseline hypothyroidism, euthyroid as of today's TSH Hyperglycemia likely secondary to prediabetes, hemoglobin A1c of 6.1 in 2015 Medical telemetry IV Heparin LE venous Dopplers rule out DVT Request a.m. provider to [facility] with [facility] (preferred provider by patient) regarding home anticoagulation recommendations given possible malignancy prior to discharge. Patient may be a candidate for weight-based Lovenox. GI consult Re: Pancreatic mass N.p.o. until patient seen by GI in a.m. in anticipation of diagnostic procedure Hold home aspirin until patient seen by GI Update hemoglobin A1c DVT prophylaxis. IV heparin Full code Patient's requesting updates from providers. Mr. Giacomo Yu, contact numbers [phone]. Text document was generated using [employer] voice recognition software. It may contain grammatical or spelling errors. Kindly contact undersigned for clarification of any documentation item in question. History of Present Illness Chief Complaint: Chest tightness, nausea, fatigue Primary Care Provider: Dalila Romo, History obtained from patient, family, and records. Medical history significant for hypertension, PFO with atrial septal aneurysm, nonobstructive CAD as per records, OCD, mood disorder, CRI (baseline creatinine 1.3-1.4 ), esophageal stricture as per records, hypothyroidism. Last confinement March 2012 for chest pain. Nonobstructive CAD on cardiac cath. Patient has had vague upper abdominal discomfort going to her back in the last month, poor appetite, no change in bowel habits. Patient more fatigued since last week. Yesterday, patient noted intermittent chest tightness, palpitations, blood pressure higher than usual. No cough, no shortness of breath. At the ER, IV Heparin started for PE on CT No prior episodes of blood clots. Patient cites family history of blood clots. Medical History as above Surgical History : Hysterectomy Family History : PE DVT, heart disease; no pancreatic cancer Personal/Social history : Non-smoker, occasional EtOH intake, retired pharmacist Allergies Allergy/AdvReac Type Severity Reaction Status Date / Time apple Allergy Intermediate RAW Verified 01/31/21 20:39 APPLE-THROAT ITCHES strawberry Allergy Intermediate RAW Verified 01/31/21 20:39 STRAWBERRY-THROAT ITCHES sulfamethoxazole Allergy Intermediate HIVES Verified 01/31/21 20:39 trimethoprim Allergy Intermediate HIVES Verified 01/31/21 20:39 trolamine salicylate Allergy Intermediate RASH Verified 01/31/21 20:39 tuberculin, purified protein Allergy Mild RASH Verified 01/31/21 20:39 deriva Home Medications Medication Instructions Recorded Confirmed Type ascorbic acid (vitamin C) 500 mg 500 mg PO PM tab 02/16/19 01/31/21 History tablet cyanocobalamin (vitamin B-12) 500 500 mcg PO QAM tab 02/16/19 01/31/21 History mcg tablet famotidine 20 mg tablet 20 mg PO BID tab 02/16/19 01/31/21 History fluvoxamine 100 mg tablet 100 mg PO .COMPLEX tab 02/16/19 01/31/21 History glucosamine sulfate 500 mg capsule 500 mg PO BID cap 02/16/19 01/31/21 History loratadine 10 mg capsule 10 mg PO HS #30 cap 02/16/19 01/31/21 History losartan 25 mg tablet 12.5 mg PO HS tab 02/16/19 01/31/21 History pyridoxine (vitamin B6) 50 mg 50 mg PO PM tab 02/16/19 01/31/21 History tablet denosumab 60 mg/mL subcutaneous 60 mg SUBCUT .every 6 months #1 ml 04/13/20 01/31/21 Rx syringe (Prolia) acetaminophen 325 mg tablet 650 mg PO Q8 PRN 01/31/21 01/31/21 History (Tylenol) acetaminophen 650 mg 650 mg PO HS PRN 01/31/21 01/31/21 History tablet,extended release (Tylenol Arthritis Pain) aluminum-mag hydroxide-simethicone 20 ml PO HS PRN 01/31/21 01/31/21 History 200 mg-200 mg-20 mg/5 mL oral susp aspirin 81 mg tablet,delayed 81 mg PO HS 01/31/21 01/31/21 History release (Aspirin Low Dose) bupropion HCl 150 mg 24 hr tablet, 150 mg PO QAM 01/31/21 01/31/21 History extended release (Wellbutrin XL) calcitriol 0.25 mcg capsule 0.25 mcg PO QAM 01/31/21 01/31/21 History calcium carb 300 mg-D3 800 2 tab PO PM 01/31/21 01/31/21 History unit-mag ox 25 mg-copra sampler 0.5 mg-jesusita-Zn tablet (Caltrate + D3 Plus Minerals) docusate sodium 100 mg capsule 100 mg PO PM 01/31/21 01/31/21 History (Colace) levothyroxine 75 mcg tablet 75 mcg PO QAM 01/31/21 01/31/21 History olopatadine 0.1 % eye drops 1 drp OPB BID 01/31/21 01/31/21 History (Pataday Twice Daily Relief) Past Med/Surg History Medical History (Updated 02/01/21 @ 06:29 by Pa Galeana MD) Hypothyroid Osteoporosis Social History Smoking Status: Never smoker Do You Dip or Chew Tobacco: No; Hx Alcohol Use: Yes Hx Substance Use: No Preferred Language: Estonian Communication Ability: Effective Balance Recesser Required: No Beliefs That Will Affect Care: None Current Living Situation: Spouse Other Information That Helps Us Care for You: No Feels Safe at Home: Yes Safety Concerns: Feels Safe At This Time Assistive Devices: None Review of Systems Review of Systems: As per HPI, all 10 systems reviewed, all other ROS negative Physical Exam Physical Exam: GENERAL: Comfortable, pleasant, no respiratory distress SKIN: Normal color, warm HEENT: [place] palpebral conjunctivae, no ptosis, dry buccal mucosa NECK : Supple, no tenderness CHEST : CTA, no tenderness HEART : RRR, no obvious murmurs ABDOMEN: Some distention, minimal epigastric tenderness EXTREMITIES : No LE swelling/tenderness, no other conspicuous deformities noted NEUROLOGIC : Coherent, no facial asymmetry, no other gross focality Results & Data Results & Data ([facility]) Vital Signs (Past 12 Hours) Vital Signs Temp Pulse Pulse Resp BP BP Pulse Ox 01/31/21 22:50 90 18 140/98 96 01/31/21 21:37 90 16 157/96 H 97 01/31/21 21:00 94 H 18 170/107 H 97 01/31/21 19:54 94 H 16 130/98 97 01/31/21 16:09 37 C 121 H 18 106/66 95 Laboratory Results Laboratory Results WBC 15.22 K/uL (4.8-10.8) H 01/31/21 16:24 RBC 4.47 M/uL (4.2-5.4) 01/31/21 16:24 Hgb 14.6 g/dL (12.0-16.0) 01/31/21 16:24 Hct 42.7 % (37-47) 01/31/21 16:24 MCV 95.5 fL (80-100) 01/31/21 16:24 MCH 32.7 pg (25-34) 01/31/21 16:24 MCHC 34.2 g/dL (32-36) 01/31/21 16:24 RDW Std Deviation 48.9 fL (36.4-46.3) H 01/31/21 16:24 RDW Coeff of French 14.0 % (11.5-14.5) 01/31/21 16:24 Plt Count 223 K/uL (130-400) 01/31/21 16:24 MPV 8.8 fL (7.4-10.4) 01/31/21 16:24 Immature Gran % (Auto) 0.3 % 01/31/21 16:24 Neut % (Auto) 76.6 % 01/31/21 16:24 Lymph % (Auto) 9.9 % 01/31/21 16:24 [place] % (Auto) 12.2 % 01/31/21 16:24 Eos % (Auto) 0.8 % 01/31/21 16:24 Baso % (Auto) 0.2 % 01/31/21 16:24 Neut # (Auto) 11.65 K/uL (1.4-6.5) H 01/31/21 16:24 Lymph # (Auto) 1.51 K/uL (1.2-3.4) 01/31/21 16:24 [place] # (Auto) 1.86 K/uL (0.11-0.59) H 01/31/21 16:24 Eos # (Auto) 0.12 K/uL (0-0.5) 01/31/21 16:24 Baso # (Auto) 0.03 K/uL (0-0.2) 01/31/21 16:24 Immature Gran # (Auto) 0.05 K/uL (0.00-0.02) H 01/31/21 16:24 PT 10.6 Seconds (9.0-12.0) 01/31/21 16:24 INR 1.0 (0.9-1.1) 01/31/21 16:24 APTT 26.1 Seconds (21.0-31.0) 01/31/21 16:24 PTT Ratio 1.0 01/31/21 16:24 Sodium 135 mmol/L (136-145) L 01/31/21 16:24 Potassium 4.1 mmol/L (3.5-5.1) 01/31/21 16:24 Chloride 102 mmol/L (98-107) 01/31/21 16:24 Carbon Dioxide 25 mmol/L (21-32) 01/31/21 16:24 Anion Gap 8.0 (3-11) 01/31/21 16:24 BUN 16 mg/dl (7-18) 01/31/21 16:24 Creatinine 1.17 mg/dl (0.6-1.2) 01/31/21 16:24 Est Cr Clr Drug Dosing 36.9 ml/min 01/31/21 16:24 Est GFR ( Amer) 55.4 ml/min 01/31/21 16:24 Est GFR (Non-Af Amer) 47.8 ml/min 01/31/21 16:24 BUN/Creatinine Ratio 13.8 (10-20) 01/31/21 16:24 Glucose 130 mg/dl (70-99) H 01/31/21 16:24 Calcium 9.3 mg/dl (8.5-10.1) 01/31/21 16:24 Total Bilirubin 0.4 mg/dl (0.2-1) 01/31/21 16:24 AST 94 U/L (15-37) H 01/31/21 16:24 ALT 192 U/L (12-78) H 01/31/21 16:24 Alkaline Phosphatase 203 U/L (45-117) H 01/31/21 16:24 Troponin I < 0.015 ng/ml (0-0.045) 01/31/21 16:24 Total Protein 8.3 gm/dl (6.4-8.2) H 01/31/21 16:24 Albumin 3.8 gm/dl (3.4-5.0) 01/31/21 16:24 Globulin 4.5 gm/dl (2.5-4.0) H 01/31/21 16:24 Albumin/Globulin Ratio 0.9 (0.9-2) 01/31/21 16:24 COVID-19 Eval Order Covid19 at [facility] 01/31/21 20:00 SARS-CoV-2 (PCR) NEGATIVE (Negative) 01/31/21 20:00 Impressions Chest X-Ray 01/31/21 16:14 SINGLE VIEW CHEST CLINICAL HISTORY: Atypical chest pain. FINDINGS: An AP, portable, upright chest radiograph is compared to study dated 03/21/2015. The cardiomediastinal silhouette is top normal for projection noting atherosclerotic calcification of the thoracic aorta. The lungs and pleural s paces are clear. No pneumothorax is seen. The skeletal structures are osteopenic. The bony thorax is grossly intact. IMPRESSION: No active disease in the chest. ACT 112: Negative or not required by law. Electronically signed by: Del Rodriguez M.D. 01/31/2021 7:28 PM Gallbladder Ultrasound 01/31/21 19:26 ULTRASOUND RIGHT UPPER QUADRANT ABDOMEN CLINICAL HISTORY: Right upper quadrant abdominal pain. Elevated hepatic transaminases. COMPARISON STUDY: Abdominal ultrasound dated 01/29/2013. TECHNIQUE: Real-time, grayscale, and color flow sonography of the right upper quadrant of the abdomen was performed. Images are reviewed in the transverse and longitudinal planes. FINDINGS: Liver: The liver is heterogeneous in echotexture and infiltrated by numerous hypoechoic mass lesions. The largest is in the right lobe and measures up to 3.2 cm. There is no intrahepatic biliary ductal dilatation. The main portal vein is patent. Gallbladder: The gallbladder is normal in appearance. No gallstones are identified. There is no gallbladder wall thickening or pericholecystic fluid. A sonographic Man's sign is reportedly absent. The common bile duct measures up to 0.3 cm in diameter. Pancreas: Visualized portions of the pancreatic head and body are normal in appearance. The splenic vein is patent. Right kidney: Survey images of the right kidney demonstrate normal size and echotexture. There is no hydronephrosis. Ascites: None. IMPRESSION: 1. The liver is infiltrated by numerous mass lesions. This is new from 01/29/2013 and highly concerning for hepatic metastatic disease. Correlate with the patient's medical/oncological history. 2. There are no gallstones or evidence of acute cholecystitis. ACT 112: Negative or not required by law. Electronically signed by: Del Rodriguez M.D. 01/31/2021 8:59 PM Diagnostic Findings CTA chest initial read: There is a small filling defect of a distal segmental branch of the left lower lobe consistent with pulmonaryembolus. No aortic aneurysmor dissection. Lungs are clear. Heart size is normal. No pathologicallyenlarged lymph nodes. No fracture. CT abdomen pelvis initial read: 1. Aheterogeneous 3.0 x 5.5 x 3.9 cmmass in the tail the pancreas is consistent with malignancy. 2. Diffuse hepatic masses measure up to 3.7 cmand are consistent with metastatic disease. 3. The remaining solid organs are unremarkable. No obstruction. No fracture EKG as per my interpretationRate 105, sinus tachycardia, normal axis, incomplete RBBB, T wave abnormalities septal leads
[2021-02-01 01:31] LABS: Lipase 278 U/L (73-393)
[2021-02-01] MEDS ORDERED: traMADol HCL 50 MG TABLET PO PRN (02:31)
[2021-02-01] MEDS ORDERED: PROMETHAZINE HCL 6.25 MG in SODIUM CHLORIDE 0.9% 50 ML IV PRN (02:31)
[2021-02-01] MEDS ORDERED: MoRPHine SULFATE 2 MG/ML CARP IV PRN (02:31)
[2021-02-01] MEDS ORDERED: LORazepam 0.25 MG/0.5 ML VIAL IV PRN (02:31)
[2021-02-01] MEDS ORDERED: HEPARIN SODIUM/DEXTROSE 25,000 UNITS/500 ML BAG IV SCH (02:31)
[2021-02-01] MEDS ORDERED: Heparin IV Adult Wt-Based Standard *NO* Bolus Protocol ONE (02:31)
[2021-02-01] MEDS ORDERED: ALUMINUM/MAGNESIUM SUSP 30 ML UDC PO PRN (02:35)
[2021-02-01] MEDS: SODIUM CHLORIDE 0.9% 1000ML 1,000 ML IV SCH ×2 (02:39→19:33)
[2021-02-01] MEDS: ACETAMINOPHEN 325 MG TAB PO PRN ×2 (03:08→23:11)
[2021-02-01 05:06] LABS: Basophils # (auto) 0.03 K/uL (0-0.2); Basophils % (auto) 0.2 %; Eosinophils # (auto) 0.23 K/uL (0-0.5); Eosinophils % (auto) 1.5 %; Hemoglobin 13.9 g/dL (12.0-16.0); Immature Granulocytes # (auto) 0.04 K/uL (0.00-0.02); Immature Granulocytes % (auto) 0.3 %; Lymphocytes # (auto) 2.36 K/uL (1.2-3.4); Lymphocytes % (auto) 15.4 %; Mean Corpuscular Hemoglobin 31.5 pg (25-34); Mean Corpuscular Hgb Conc 33.1 g/dL (32-36); Mean Corpuscular Volume 95.2 fL (80-100); Mean Platelet Volume 8.5 fL (7.4-10.4); Monocytes # (auto) 1.91 K/uL (0.11-0.59); Monocytes % (auto) 12.4 %; Neutrophils % (auto) 70.2 %; Platelet Count 197 K/uL (130-400); RDW Standard Deviation 49.2 fL (36.4-46.3); Red Blood Count 4.41 M/uL (4.2-5.4); White Blood Count 15.37 K/uL (4.8-10.8)
[2021-02-01 05:28] LABS: Albumin Level 3.7 gm/dl (3.4-5.0); BUN Creatinine Ratio 14.4 (10-20); Calcium 8.7 mg/dl (8.5-10.1); Creatinine Clr Calc Pharmacy 43.7 ml/min; Est GFR (African American) 69.9 ml/min; Est GFR (Non-African American) 60.3 ml/min; Partial Thromboplastin Ratio 2.4; Potassium 3.9 mmol/L (3.5-5.1)
[2021-02-01 05:31] LABS: Albumin Globulin Ratio 0.9 (0.9-2); Bilirubin,Total 0.5 mg/dl (0.2-1); Globulin 4.2 gm/dl (2.5-4.0); Total Protein 7.9 gm/dl (6.4-8.2)
[2021-02-01] MEDS: LOSARTAN POTASSIUM 25 MG TAB PO SCH ×2 (06:07→20:58)
[2021-02-01] MEDS: LEVOTHYROXINE SODIUM 75 MCG TABLET PO SCH (06:07)
[2021-02-01 06:08] LABS: Partial Thromboplastin Time 63.7 Seconds (21.0-31.0)
--- NOTE | 2021-02-01 07:04 | Ultrasound Report ---
BILATERAL LOWER EXTREMITY VENOUS DOPPLER CLINICAL HISTORY: pe santacruz COMPARISON STUDY: Bilateral lower extremity venous Doppler ultrasound March 30, 2012. TECHNIQUE: Sonography of the deep venous system of the bilateral lower extremities was performed. Co mpression and augmentation were evaluated. FINDINGS: The bilateral common femoral, superficial femoral and popliteal veins were compressible. A ugmentation was normal. Flow was shown within the deep calf vessels. IMPRESSION: No evidence of deep venous thrombus within the bilateral lower extremities. ACT 112: Negative or not required by law. Electronically signed by: Jagdish Hensley M.D. 02/01/2021 7:03 AM
[2021-02-01 07:59] LABS: Estimated Average Glucose 137 mg/dl; Hemoglobin A1C 6.4 % (4.5-5.6)
[2021-02-01] MEDS: buPROPion XL 150 MG TABCR PO SCH (08:23)
[2021-02-01] MEDS: ACETAMINOPHEN 325 MG TAB PO SCH ×3 (08:23→20:56)
[2021-02-01] MEDS: fluvoxaMINE MALEATE 50 MG TAB PO SCH ×2 (08:24→20:57)
[2021-02-01] MEDS: FAMOTIDINE 20 MG TAB PO SCH (08:24)
--- NOTE | 2021-02-01 08:26 | CT Scan Report ---
CT ANGIOGRAPHY OF THE CHEST, PULMONARY EMBOLUS PROTOCOL CLINICAL HISTORY: PE, tachycardia, liver masses COMPARISON STUDY: Chest radiograph December 08, 2013 and January 31, 2021. TECHNIQUE: Following IV administration of 119 mL of Optiray, helical axial images of the chest were o btained utilizing the pulmonary embolus protocol. Maximal intensity projections and sagittal and cor onal reformats were viewed on an independent 3D workstation. IV contrast was administered without co mplication. Automated exposure control was utilized for the study. A dose lowering technique was ut ilized adhering to the principles of ALARA. CT DOSE: 527.04 mGy.cm FINDINGS: There is a small segmental pulmonary embolus within the left lower lobe on image 175 of 31 6. No additional pulmonary emboli are identified. Mild cardiomegaly is noted. No pericardial effusion . There is no thoracic lymphadenopathy. There is no consolidation to suggest pneumonia. Groundglass o pacities within the lungs favor atelectasis or air-trapping. Numerous hepatic masses are better depic markel on the CT of the abdomen and pelvis which will be reported separately. Pancreatic tail mass is al so better depicted on that exam. IMPRESSION: 1. Small segmental pulmonary embolus within the left lower lobe. 2. Hepatic metastases and a pancreatic tail mass which are better depicted on the CT of the abdomen a nd pelvis. This will be reported separately. ACT 112: Negative or not required by law. Electronically signed by: Jagdish Hensley M.D. 02/01/2021 8:24 AM
--- NOTE | 2021-02-01 08:32 | CT Scan Report ---
CT OF THE ABDOMEN AND PELVIS WITH CONTRAST CLINICAL HISTORY: Liver masses. COMPARISON STUDY: Right upper quadrant ultrasound January 29, 2013 and January 31, 2021. TECHNIQUE: Following IV administration of 119 mL of Optiray, axial images of the abdomen and pelvis w ere obtained from the lung bases to the proximal femurs. Images were reviewed in the axial, sagittal, and coronal planes. IV contrast was administered without complication. Automated exposure control w as utilized for the study. A dose lowering technique was utilized adhering to the principles of CAMACHO Goel. FINDINGS: A small segmental pulmonary embolus within the left lower lobe is noted on the chest CT whi ch will be reported separately. Numerous bilobar hepatic lesions are noted. These measure up to 3.8 c m. These are new since ultrasound of January 29, 2013. Note is made of the heterogeneous pancreatic ta il mass that measures 4.6 x 2.4 x 3.8 cm. This results in occlusion of the splenic vein. There is no biliary or pancreatic ductal dilatation. Associated perigastric varices are noted. The spleen, adrena l glands and kidneys are unremarkable. There is a 2.2 cm heterogeneous lesion along the right lateral aspect of the celiac axis. This favors a pathologic lymph node. A few additional mildly enlarged upp er abdominal lymph nodes are noted. There is no evidence for a bowel obstruction. The superior mesent funmilayo vein and artery are patent. There is mild narrowing of the main portal vein likely due to lympha denopathy. No suspicious lesions are identified within the visualized skeletal structures. IMPRESSION: 1. 4.6 x 2.4 x 3.8 cm pancreatic tail lesion highly suggestive of pancreatic adenocarcinoma. Numerous hepatic metastases. 2. Several mildly enlarged upper abdominal lymph nodes suggestive of juan r spread of disease. 3. No bowel obstruction. 4. Segmental pulmonary embolus within the left lower lobe which is depicted on the chest CT. This darlene l be reported separately. ACT 112: Negative or not required by law. Electronically signed by: Jagdish Hensley M.D. 02/01/2021 8:31 AM
--- NOTE | 2021-02-01 09:22 | Gastrointestinal Consultation ---
Date of Consultation February 01, 2021 Assessment & Plan (1) Acute pulmonary embolism: 71 year old female admitted w/ pancreatic tail mass, liver lesion and new PE on heparin drip Appreciate anticoagulation per primary service Arrange for EUS, timing to be determined will discuss with Dr. Shah Thank you for allowing us to participate in the care of this patient. Please call with any acute changes, questions or concerns. Please see addendum below with additional recommendation from my supervising physician. Supervising Physician Co-Signing Physician Notes No acute distress, thin female in nad, HEENT - perrla, Abd - soft nt nd Acute PE on heparin Case discussed with Dr. Shah - outpt eus in 1-2 weeks for further workup of her pancreatic mass. History of Present Illness Reason for Consultation: panc mass Requesting Physician: Namrata Attending Physician: Carlton Ott MD History of Present Illness 71 year old female with history of HTN, PFO with atrial septal aneurysm, n onobstructive CAD as per records and others below admitted w/ chest pressure and decreased appeetite x 1 week. Notes maybe 1-2 months ago she has had some mild upper abdominal bandlike pain but not severe. No associated nausea/vomiting. No GERD. Lost 4 lbs in 2 weeks but no chronic weight loss. Admitted w/ concern for pancreatic tail mass w/ liver lesions and PE. Venous duplex: No evidence of deep venous thrombus within the bilateral lower extremities. Chest CTA: Small segmental pulmonary embolus within the left lower lobe. Hepatic metastases and a pancreatic tail mass which are better depicted on the CT of the abdomen and pelvis. This will be reported separately. CTAP: 4.6 x 2.4 x 3.8 cm pancreatic tail lesion highly suggestive of pancreatic adenocarcinoma. Numerous hepatic metastases.Several mildly enlarged upper abdominal lymph nodes suggestive of juan r spread of disease. No bowel obstruction.Segmental pulmonary embolus within the left lower lobe which is depicted on the chest CT. This will be reported separately. ABD US: The liver is infiltrated by numerous mass lesions. This is new from 01/29/2013 and highly concerning for hepatic metastatic disease. Correlate with the patient's medical/oncological history. There are no gallstones or evidence of acute cholecystitis. Allergies Allergy/AdvReac Type Severity Reaction Status Date / Time apple Allergy Intermediate RAW Verified 01/31/21 20:39 APPLE-THROAT ITCHES strawberry Allergy Intermediate RAW Verified 01/31/21 20:39 STRAWBERRY-THROAT ITCHES sulfamethoxazole Allergy Intermediate HIVES Verified 01/31/21 20:39 trimethoprim Allergy Intermediate HIVES Verified 01/31/21 20:39 trolamine salicylate Allergy Intermediate RASH Verified 01/31/21 20:39 tuberculin, purified protein Allergy Mild RASH Verified 01/31/21 20:39 deriva Home Medications Medication Instructions Recorded Confirmed Type ascorbic acid (vitamin C) 500 mg 500 mg PO PM tab 02/16/19 01/31/21 History tablet cyanocobalamin (vitamin B-12) 500 500 mcg PO QAM tab 02/16/19 01/31/21 History mcg tablet famotidine 20 mg tablet 20 mg PO BID tab 02/16/19 01/31/21 History fluvoxamine 100 mg tablet 100 mg PO .COMPLEX tab 02/16/19 01/31/21 History glucosamine sulfate 500 mg capsule 500 mg PO BID cap 02/16/19 01/31/21 History loratadine 10 mg capsule 10 mg PO HS #30 cap 02/16/19 01/31/21 History losartan 25 mg tablet 12.5 mg PO HS tab 02/16/19 01/31/21 History pyridoxine (vitamin B6) 50 mg 50 mg PO PM tab 02/16/19 01/31/21 History tablet denosumab 60 mg/mL subcutaneous 60 mg SUBCUT .every 6 months #1 ml 04/13/20 01/31/21 Rx syringe (Prolia) acetaminophen 325 mg tablet 650 mg PO Q8 PRN 01/31/21 01/31/21 History (Tylenol) acetaminophen 650 mg 650 mg PO HS PRN 01/31/21 01/31/21 History tablet,extended release (Tylenol Arthritis Pain) aluminum-mag hydroxide-simethicone 20 ml PO HS PRN 01/31/21 01/31/21 History 200 mg-200 mg-20 mg/5 mL oral susp aspirin 81 mg tablet,delayed 81 mg PO HS 01/31/21 01/31/21 History release (Aspirin Low Dose) bupropion HCl 150 mg 24 hr tablet, 150 mg PO QAM 01/31/21 01/31/21 History extended release (Wellbutrin XL) calcitriol 0.25 mcg capsule 0.25 mcg PO QAM 01/31/21 01/31/21 History calcium carb 300 mg-D3 800 2 tab PO PM 01/31/21 01/31/21 History unit-mag ox 25 mg-senior copywriter 0.5 mg-jesusita-Zn tablet (Caltrate + D3 Plus Minerals) docusate sodium 100 mg capsule 100 mg PO PM 01/31/21 01/31/21 History (Colace) levothyroxine 75 mcg tablet 75 mcg PO QAM 01/31/21 01/31/21 History olopatadine 0.1 % eye drops 1 drp OPB BID 01/31/21 01/31/21 History (Pataday Twice Daily Relief) Patient History Medical History (Updated 02/01/21 @ 06:29 by Pa Galeana MD) Hypothyroid Osteoporosis Social History Smoking Status: Never smoker Do You Dip or Chew Tobacco: No; Hx Alcohol Use: Yes Hx Substance Use: No Preferred Language: Palauan Communication Ability: Effective Negative Notcher Required: No Beliefs That Will Affect Care: None Current Living Situation: Spouse Other Information That Helps Us Care for You: No Feels Safe at Home: Yes Safety Concerns: Feels Safe At This Time Assistive Devices: None Review of Systems Review of Systems: All systems reviewed & are unremarkable except as noted in HPI & below Physical Exam Constitutional: WD/WN, vitals as above Respiratory: normal respiratory effort, lungs clear to auscultation Cardiovascular: RRR, no murmur, no edema Gastrointestinal (Abdomen): Inspection/Auscultation: abdomen normal to inspection and normal bowel sounds Percussion/Palpation: + abdomen tender and abdomen soft; no guarding, no abdominal mass and no ascites Skin: no rashes, warm and dry Results & Data ([facility]) Vital Signs (Past 12 Hours) Vital Signs Temp Pulse Pulse Pulse Resp BP BP 02/01/21 07:53 37.0 C 87 20 02/01/21 07:00 92 H 02/01/21 03:15 36.9 C 83 18 177/99 H 02/01/21 02:55 102 H 02/01/21 01:48 37.2 C 97 H 18 173/103 H 02/01/21 01:47 158/103 H 02/01/21 00:00 134/102 H 01/31/21 22:50 90 18 140/98 01/31/21 21:37 90 16 157/96 H BP Pulse Ox 02/01/21 07:53 154/104 H 94 02/01/21 07:00 02/01/21 03:15 95 02/01/21 02:55 02/01/21 01:48 93 02/01/21 01:47 02/01/21 00:00 01/31/21 22:50 96 01/31/21 21:37 97 Laboratory Results 02/01/21 02/01/21 02/01/21 Range/Units 04:52 04:52 04:52 WBC 15.37 H (4.8-10.8) K/uL RBC 4.41 (4.2-5.4) M/uL Hgb 13.9 (12.0-16.0) g/dL Hct 42.0 (37-47) % MCV 95.2 (80-100) fL MCH 31.5 (25-34) pg MCHC 33.1 (32-36) g/dL RDW Std Deviation 49.2 H (36.4-46.3) fL RDW Coeff of French 14.0 (11.5-14.5) % Plt Count 197 (130-400) K/uL MPV 8.5 (7.4-10.4) fL Immature Gran % (Auto) 0.3 % Neut % (Auto) 70.2 % Lymph % (Auto) 15.4 % [place] % (Auto) 12.4 % Eos % (Auto) 1.5 % Baso % (Auto) 0.2 % Neut # (Auto) 10.80 H (1.4-6.5) K/uL Lymph # (Auto) 2.36 (1.2-3.4) K/uL [place] # (Auto) 1.91 H (0.11-0.59) K/uL Eos # (Auto) 0.23 (0-0.5) K/uL Baso # (Auto) 0.03 (0-0.2) K/uL Immature Gran # (Auto) 0.04 H (0.00-0.02) K/uL PT (9.0-12.0) Seconds INR (0.9-1.1) APTT 63.7 H* (21.0-31.0) Seconds PTT Ratio 2.4 Sodium 135 L (136-145) mmol/L Potassium 3.9 (3.5-5.1) mmol/L Chloride 103 (98-107) mmol/L Carbon Dioxide 25 (21-32) mmol/L Anion Gap 7.0 (3-11) BUN 14 (7-18) mg/dl Creatinine 0.96 (0.6-1.2) mg/dl Est Cr Clr Drug Dosing 43.7 ml/min Est GFR ( Amer) 69.9 ml/min Est GFR (Non-Af Amer) 60.3 ml/min BUN/Creatinine Ratio 14.4 (10-20) Glucose 120 H (70-99) mg/dl Estimat Average Glucose mg/dl Hemoglobin A1c (4.5-5.6) % Calcium 8.7 (8.5-10.1) mg/dl Total Bilirubin 0.5 (0.2-1) mg/dl AST 109 H (15-37) U/L ALT 175 H (12-78) U/L Alkaline Phosphatase 191 H (45-117) U/L Troponin I (0-0.045) ng/ml Total Protein 7.9 (6.4-8.2) gm/dl Albumin 3.7 (3.4-5.0) gm/dl Globulin 4.2 H (2.5-4.0) gm/dl Albumin/Globulin Ratio 0.9 (0.9-2) Lipase (73-393) U/L TSH (0.300-4.500) uIu/ml COVID-19 Eval Order SARS-CoV-2 (PCR) (Negative) 01/31/21 01/31/21 01/31/21 Range/Units 20:00 20:00 16:24 WBC (4.8-10.8) K/uL RBC (4.2-5.4) M/uL Hgb (12.0-16.0) g/dL Hct (37-47) % MCV (80-100) fL MCH (25-34) pg MCHC (32-36) g/dL RDW Std Deviation (36.4-46.3) fL RDW Coeff of French (11.5-14.5) % Plt Count (130-400) K/uL MPV (7.4-10.4) fL Immature Gran % (Auto) % Neut % (Auto) % Lymph % (Auto) % [place] % (Auto) % Eos % (Auto) % Baso % (Auto) % Neut # (Auto) (1.4-6.5) K/uL Lymph # (Auto) (1.2-3.4) K/uL [place] # (Auto) (0.11-0.59) K/uL Eos # (Auto) (0-0.5) K/uL Baso # (Auto) (0-0.2) K/uL Immature Gran # (Auto) (0.00-0.02) K/uL PT (9.0-12.0) Seconds INR (0.9-1.1) APTT (21.0-31.0) Seconds PTT Ratio Sodium (136-145) mmol/L Potassium (3.5-5.1) mmol/L Chloride (98-107) mmol/L Carbon Dioxide (21-32) mmol/L Anion Gap (3-11) BUN (7-18) mg/dl Creatinine (0.6-1.2) mg/dl Est Cr Clr Drug Dosing ml/min Est GFR ( Amer) ml/min Est GFR (Non-Af Amer) ml/min BUN/Creatinine Ratio (10-20) Glucose (70-99) mg/dl Estimat Average Glucose 137 mg/dl Hemoglobin A1c 6.4 H (4.5-5.6) % Calcium (8.5-10.1) mg/dl Total Bilirubin (0.2-1) mg/dl AST (15-37) U/L ALT (12-78) U/L Alkaline Phosphatase (45-117) U/L Troponin I (0-0.045) ng/ml Total Protein (6.4-8.2) gm/dl Albumin (3.4-5.0) gm/dl Globulin (2.5-4.0) gm/dl Albumin/Globulin Ratio (0.9-2) Lipase (73-393) U/L TSH (0.300-4.500) uIu/ml COVID-19 Eval Order Covid19 at [facility] SARS-CoV-2 (PCR) NEGATIVE (Negative) 01/31/21 01/31/21 01/31/21 Range/Units 16:24 16:24 16:24 WBC 15.22 H (4.8-10.8) K/uL RBC 4.47 (4.2-5.4) M/uL Hgb 14.6 (12.0-16.0) g/dL Hct 42.7 (37-47) % MCV 95.5 (80-100) fL MCH 32.7 (25-34) pg MCHC 34.2 (32-36) g/dL RDW Std Deviation 48.9 H (36.4-46.3) fL RDW Coeff of French 14.0 (11.5-14.5) % Plt Count 223 (130-400) K/uL MPV 8.8 (7.4-10.4) fL Immature Gran % (Auto) 0.3 % Neut % (Auto) 76.6 % Lymph % (Auto) 9.9 % [place] % (Auto) 12.2 % Eos % (Auto) 0.8 % Baso % (Auto) 0.2 % Neut # (Auto) 11.65 H (1.4-6.5) K/uL Lymph # (Auto) 1.51 (1.2-3.4) K/uL [place] # (Auto) 1.86 H (0.11-0.59) K/uL Eos # (Auto) 0.12 (0-0.5) K/uL Baso # (Auto) 0.03 (0-0.2) K/uL Immature Gran # (Auto) 0.05 H (0.00-0.02) K/uL PT 10.6 (9.0-12.0) Seconds INR 1.0 (0.9-1.1) APTT 26.1 (21.0-31.0) Seconds PTT Ratio 1.0 Sodium 135 L (136-145) mmol/L Potassium 4.1 (3.5-5.1) mmol/L Chloride 102 (98-107) mmol/L Carbon Dioxide 25 (21-32) mmol/L Anion Gap 8.0 (3-11) BUN 16 (7-18) mg/dl Creatinine 1.17 (0.6-1.2) mg/dl Est Cr Clr Drug Dosing 36.9 ml/min Est GFR ( Amer) 55.4 ml/min Est GFR (Non-Af Amer) 47.8 ml/min BUN/Creatinine Ratio 13.8 (10-20) Glucose 130 H (70-99) mg/dl Estimat Average Glucose mg/dl Hemoglobin A1c (4.5-5.6) % Calcium 9.3 (8.5-10.1) mg/dl Total Bilirubin 0.4 (0.2-1) mg/dl AST 94 H (15-37) U/L ALT 192 H (12-78) U/L Alkaline Phosphatase 203 H (45-117) U/L Troponin I < 0.015 (0-0.045) ng/ml Total Protein 8.3 H (6.4-8.2) gm/dl Albumin 3.8 (3.4-5.0) gm/dl Globulin 4.5 H (2.5-4.0) gm/dl Albumin/Globulin Ratio 0.9 (0.9-2) Lipase 278 (73-393) U/L TSH 1.970 (0.300-4.500) uIu/ml COVID-19 Eval Order SARS-CoV-2 (PCR) (Negative)
--- NOTE | 2021-02-01 10:39 | Hospitalist Progress Note ---
Date of Service February 01, 2021 Assessment & Plan (1) Acute pulmonary embolism: Plan: Acute Left Lower Lobe PE in the setting of pancreatic mass probable malignancy -- CT chest: 1. Small segmental pulmonary embolus within the left lower lobe. 2. Hepatic metastases and a pancreatic tail mass which are better depicted on the CT of the abdomen and pelvis. This will be reported separately. -- no hypoxia Leg US: negative for DVT -- on Heparin IV possible transition to Lovenox or Eliquis pending evaluation by Hem/Onc -- GI Dr. Shah consulted recommend outpatient EUS in 1-2 weeks given acute PE -- will need outpatient Hem/Onc follow up Hypertension, slight elevated -- monitor PFO with atrial septal aneurysm nonobstructive CAD as per records -- no cardiac symptoms OCD, mood disorder, at baseline CRI, creatinine better than baseline hypothyroidism, euthyroid Hyperglycemia likely secondary to prediabetes, hemoglobin A1c of 6.1 in 2015 -- A1c 6.4 DVT prophylaxis. IV heparin Full code Disposition pending Admission and Anticipated Discharge Date Admission Date: January 31, 2021 Subjective ff up for acute PE, pancreatic mass, etc seen resting in bed, comfortable states abdominal pain is slightly better with Tylenol has some intermittent nausea no changes with BM no chest pain, dyspnea, cough no bleeding states she feels tired with exertion no other symptoms Review of Systems Review of Systems: all noted and negative except for above Physical Exam Physical Exam: General- oriented x 3, not in distress, speaks in sentences with no effort or accessory muscle use Head- atraumatic Eyes- PERRL, EOMI, anicteric ENT- oropharynx clear Neck- supple, no JVD, no adenopathy, no thyromegaly; carotids +2/2, no bruits appreciated Lungs- clear to auscultation bilaterally, no rales/wheezes Heart- normal rate, regular rhythm; no murmur, no gallop, no rub appreciated Abdomen- normal bowel sounds, nondistended, soft, mild abdominal tenderness lower quadrants Extremities- no pretibial edema, no calf tenderness; peripheral pulses intact Neuro- alert, oriented x 3; CN 2-12 grossly intact; motor 5/5 bilaterally;se nsation 100% on all extremities; no other gross focal neurologic deficits Skin- warm & dry Results & Data Results & Data ([facility]) Vital Signs (Past 12 Hours) Vital Signs Temp Pulse Pulse Pulse Resp BP BP 09/01/21 07:53 37.0 C 87 20 02/01/21 07:00 92 H 02/01/21 03:15 36.9 C 83 18 177/99 H 02/01/21 02:55 102 H 02/01/21 01:48 37.2 C 97 H 18 173/103 H 02/01/21 01:47 158/103 H 02/01/21 00:00 134/102 H 01/31/21 22:50 90 18 140/98 BP Pulse Ox 02/01/21 07:53 154/104 H 94 02/01/21 07:00 02/01/21 03:15 95 02/01/21 02:55 02/01/21 01:48 93 02/01/21 01:47 02/01/21 00:00 01/31/21 22:50 96 all noted and reviewed including below
[2021-02-01] MEDS ORDERED: HEPARIN DRIP -- STOP ORDER ONE (18:00)
[2021-02-01] MEDS: APIXABAN 5 MG TABLET PO SCH (18:02)
[2021-02-01] MEDS: DOCUSATE SODIUM 100 MG CAP PO SCH (20:56)
[2021-02-01] MEDS: LORATADINE 10 MG TAB PO SCH (20:57)
[2021-02-01] MEDS: PYRIDOXINE HCL 50 MG TAB PO SCH (20:58)
[2021-02-01] MEDS ORDERED: LOSARTAN POTASSIUM 25 MG TAB PO SCH (21:00)
[2021-02-01] MEDS ORDERED: FAMOTIDINE 20 MG TAB PO STA (22:40)
[2021-02-01] MEDS ORDERED: cloNIDine HCL 0.1 MG TAB PO ONE (23:56)
[2021-02-02] MEDS: ONDANSETRON INJ 2 MG/ML 2 ML VIAL IV PRN ×4 (01:41→22:41)
--- NOTE | 2021-02-02 05:32 | Electrocardiogram Report ---
Test Reason : Blood Pressure : / mmHG Vent. Rate : 106 BPM Atrial Rate : 106 BPM P-R Int : 146 ms QRS Dur : 078 ms QT Int : 352 ms P-R-T Axes : 075 077 070 degrees QTc Int : 467 ms Sinus tachycardia Otherwise normal ECG When compared with ECG of 01-APR-2012 07:03, Vent. rate has increased BY 46 BPM Nonspecific T wave abnormality no longer evident in Lateral leads Confirmed by Ayden Vargas ([id number]) on 02/02/2021 5:32:01 AM Referred By: Dalila Romo Confirmed By:Ayden Vargas
[2021-02-02] MEDS: LEVOTHYROXINE SODIUM 75 MCG TABLET PO SCH (06:01)
[2021-02-02 07:34] LABS: Partial Thromboplastin Ratio 1.1; Partial Thromboplastin Time 28.7 Seconds (21.0-31.0)
[2021-02-02] MEDS: FAMOTIDINE 20 MG TAB PO SCH (08:34)
[2021-02-02] MEDS: buPROPion XL 150 MG TABCR PO SCH (08:34)
[2021-02-02] MEDS: ACETAMINOPHEN 325 MG TAB PO SCH ×3 (08:34→20:35)
[2021-02-02] MEDS: APIXABAN 5 MG TABLET PO SCH ×2 (08:35→20:35)
[2021-02-02] MEDS: fluvoxaMINE MALEATE 50 MG TAB PO SCH ×2 (08:35→20:36)
[2021-02-02 08:41] LABS: Basophils # (auto) 0.03 K/uL (0-0.2); Basophils % (auto) 0.2 %; Eosinophils # (auto) 0.16 K/uL (0-0.5); Eosinophils % (auto) 1.1 %; Hematocrit (blood only) 40.3 % (37-47); Hemoglobin 13.7 g/dL (12.0-16.0); Immature Granulocytes # (auto) 0.07 K/uL (0.00-0.02); Immature Granulocytes % (auto) 0.5 %; Lymphocytes # (auto) 1.52 K/uL (1.2-3.4); Mean Corpuscular Hemoglobin 32.4 pg (25-34); Mean Corpuscular Volume 95.3 fL (80-100); Mean Platelet Volume 9.1 fL (7.4-10.4); Monocytes % (auto) 13.8 %; Neutrophils # (auto) 11.31 K/uL (1.4-6.5); Neutrophils % (auto) 74.4 %; Platelet Count 186 K/uL (130-400); RDW Coefficient of Variation 13.9 % (11.5-14.5); RDW Standard Deviation 47.8 fL (36.4-46.3); Red Blood Count 4.23 M/uL (4.2-5.4); White Blood Count 15.19 K/uL (4.8-10.8)
[2021-02-02 09:04] LABS: Albumin Level 3.5 gm/dl (3.4-5.0); BUN Creatinine Ratio 11.5 (10-20); Calcium 8.4 mg/dl (8.5-10.1); Creatinine Clr Calc Pharmacy 47.8 ml/min; Est GFR (African American) 77.7 ml/min
[2021-02-02 09:07] LABS: Albumin Globulin Ratio 0.8 (0.9-2); Bilirubin,Total 0.6 mg/dl (0.2-1); Globulin 4.2 gm/dl (2.5-4.0); Total Protein 7.7 gm/dl (6.4-8.2)
--- NOTE | 2021-02-02 12:30 | Hospitalist Progress Note ---
Date of Service February 02, 2021 Assessment & Plan (1) Acute pulmonary embolism: Plan: Acute Left Lower Lobe PE in the setting of pancreatic mass probable malignancy -- CT chest: 1. Small segmental pulmonary embolus within the left lower lobe. 2. Hepatic metastases and a pancreatic tail mass which are better depicted on the CT of the abdomen and pelvis. This will be reported separately. -- no hypoxia Leg US: negative for DVT -- on Heparin IV-- > transitioned to Eliquis after discussion with [facility]/Onc Dr. Darden -- GI Dr. Shah consulted recommend outpatient EUS in 1-2 weeks given acute PE -- will need outpatient Hem/Onc follow up -- (+) nausea, intermittent abdominal pain today continue clears monitor recall GI if still with abdominal sx tomorrow Hypertension, slight elevated -- monitor PFO with atrial septal aneurysm nonobstructive CAD as per records -- no cardiac symptoms OCD, mood disorder, at baseline CRI, creatinine better than baseline hypothyroidism, euthyroid Hyperglycemia likely secondary to prediabetes, hemoglobin A1c of 6.1 in 2015 -- A1c 6.4 DVT prophylaxis. Eliquis Full code Disposition d/c home when medically stable Admission and Anticipated Discharge Date Admission Date: January 31, 2021 Subjective ff up for acute PE, pancreatic mass, etc seen resting in bed, comfortable reports nausea, also has intermittent midabdominal pain no chest pain, dyspnea, palpitations, dizziness no fever/chills no bleeding Review of Systems Review of Systems: all noted and negative except for above Physical Exam Physical Exam: General- oriented x 3, not in distress, speaks in sentences with no effort or accessory muscle use Eyes- anicteric Neck- no JVD Lungs- clear breath sounds bilaterally Heart- normal rate, regular rhythm; no murmurs Abdomen- normal bowel sounds, nondistended, soft, mild mid abdomen tenderness Extremities- no pretibial edema, no calf tenderness Neuro- alert, oriented x 3; no gross focal neurologic deficits Skin- warm & dry Results & Data Results & Data ([facility]) Vital Signs (Past 12 Hours) Vital Signs Temp Pulse Pulse Resp BP BP Pulse Ox 02/02/21 11:01 36.8 C 84 18 156/94 H 96 02/02/21 08:21 81 02/02/21 06:55 37.0 C 82 20 159/93 H 95 02/02/21 03:55 36.9 C 98 H 20 158/93 H 93 02/02/21 01:53 158/95 H all noted and reviewed including below (1) Acute pulmonary embolism Acute cor pulmonale presence: unspecified Pulmonary embolism type: other Qualified Code(s): I26.99 - Other pulmonary embolism without acute cor pulmonale
[2021-02-02] MEDS: ACETAMINOPHEN 325 MG TAB PO PRN ×2 (15:07→22:41)
[2021-02-02] MEDS: DOCUSATE SODIUM 100 MG CAP PO SCH (20:36)
[2021-02-02] MEDS: PYRIDOXINE HCL 50 MG TAB PO SCH (20:36)
[2021-02-02] MEDS: LOSARTAN POTASSIUM 25 MG TAB PO SCH (20:36)
[2021-02-02] MEDS: LORATADINE 10 MG TAB PO SCH (20:36)
[2021-02-03] MEDS: LEVOTHYROXINE SODIUM 75 MCG TABLET PO SCH (05:53)
[2021-02-03] MEDS: ONDANSETRON INJ 2 MG/ML 2 ML VIAL IV PRN (08:30)
[2021-02-03] MEDS: fluvoxaMINE MALEATE 50 MG TAB PO SCH (08:33)
[2021-02-03] MEDS: FAMOTIDINE 20 MG TAB PO SCH (08:34)
[2021-02-03] MEDS: ACETAMINOPHEN 325 MG TAB PO SCH ×2 (08:34→14:03)
[2021-02-03] MEDS: APIXABAN 5 MG TABLET PO SCH (08:34)
[2021-02-03] MEDS: buPROPion XL 150 MG TABCR PO SCH (08:35)
--- NOTE | 2021-02-03 14:42 | Hospitalist Progress Note ---
Date of Service February 03, 2021 Assessment & Plan (1) Acute pulmonary embolism: Plan: Acute Left Lower Lobe PE in the setting of pancreatic mass probable malignancy -- CT chest: 1. Small segmental pulmonary embolus within the left lower lobe. 2. Hepatic metastases and a pancreatic tail mass which are better depicted on the CT of the abdomen and pelvis. This will be reported separately. -- no hypoxia Leg US: negative for DVT -- on Heparin IV-- > transitioned to Eliquis after discussion with [facility]/Onc Dr. Darden -- GI Dr. Shah consulted recommend outpatient EUS in 1-2 weeks given acute PE -- will need outpatient Hem/Onc follow up -- nausea, intermittent abdominal pain resolved advised to maintain soft diet Hypertension, slight elevated -- monitor as outpatient PFO with atrial septal aneurysm nonobstructive CAD as per records -- no cardiac symptoms OCD, mood disorder, at baseline CRI, creatinine better than baseline hypothyroidism, euthyroid Hyperglycemia likely secondary to prediabetes, hemoglobin A1c of 6.1 in 2015 -- A1c 6.4 DVT prophylaxis. Eliquis Full code Disposition d/c home ff up with PCP in 1 week ff up with GI and Hem/Onc in 1-2 weeks plan of care discussed with patient in detail and at length all questions answered she is understanding, agreeable, comfortable with the plan of care Admission and Anticipated Discharge Date Admission Date: January 31, 2021 Subjective ff up for acute PE, pancreatic mass resting in bed, comfortable states abdominal pain has resolved nausea also resolved tolerating soft diet no chest pain, dyspnea, palpitations, dizziness no bleeding no other symptoms Review of Systems Review of Systems: all noted and negative except for above Physical Exam Physical Exam: General- oriented x 3, not in distress, speaks in sentences with no effort or accessory muscle use Eyes- anicteric Neck- no JVD Lungs- clear BS BL Heart- normal rate, regular rhythm; no murmurs Abdomen- normal bowel sounds, nondistended, soft, no tenderness on all quadrants Extremities- no pretibial edema, no calf tenderness Neuro- alert, oriented x 3; no gross focal neurologic deficits Skin- warm & dry Results & Data Results & Data ([facility]) Vital Signs (Past 12 Hours) Vital Signs Temp Pulse Pulse Pulse Resp BP BP 02/03/21 11:07 37.0 C 87 18 168/98 H 02/03/21 08:55 89 02/03/21 07:35 37.4 C 92 H 18 142/92 H 02/03/21 03:04 37.0 C 92 H 18 165/99 H Pulse Ox 02/03/21 11:07 94 02/03/21 08:55 02/03/21 07:35 95 02/03/21 03:04 94 (1) Acute pulmonary embolism Acute cor pulmonale presence: unspecified Pulmonary embolism type: other Qualified Code(s): I26.99 - Other pulmonary embolism without acute cor pulmonale
--- NOTE | 2021-02-03 16:34 | CT Scan Report ---
CT OF THE HEAD WITHOUT CONTRAST CLINICAL HISTORY: head trauma, r/o bleed COMPARISON STUDY: Head CT June 28, 2016. CT DOSE: 537.48 mGy.cm TECHNIQUE: Helical axial images of the head were obtained without IV contrast. Automated exposure con trol was utilized for the study. A dose lowering technique was utilized adhering to the principles o f ALARA. FINDINGS: No acute intracranial hemorrhage, midline shift or mass effect is present. White matter hyp odensities are unchanged and favor small vessel disease. The ventricular system is unremarkable. The basal cisterns are patent. No extra-axial collections are present. There are no findings to suggest a cute dural sinus thrombosis or acute territorial infarct. No significant calvarial abnormalities are present. Visualized portions of the sinuses and mastoid air cells are clear. IMPRESSION: 1. No acute intracranial findings. 2. No calvarial fracture. ACT 112: Negative or not required by law. Electronically signed by: Jagdish Hensley M.D. 02/03/2021 4:32 PM
--- NOTE | 2021-02-03 17:13 | Discharge Summary ---
Date of Service February 03, 2021 Admission HPI Per Admitting Provider History obtained from patient, family, and records. Medical history significant for hypertension, PFO with atrial septal aneurysm, nonobstructive CAD as per records, OCD, mood disorder, CRI (baseline creatinine 1.3-1.4 ), esophageal stricture as per records, hypothyroidism. Last confinement March 2012 for chest pain. Nonobstructive CAD on cardiac cath. Patient has had vague upper abdominal discomfort going to her back in the last month, poor appetite, no change in bowel habits. Patient more fatigued since last week. Yesterday, patient noted intermittent chest tightness, palpitations, blood pressure higher than usual. No cough, no shortness of breath. At the ER, IV Heparin started for PE on CT No prior episodes of blood clots. Patient cites family history of blood clots. Medical History as above Surgical History : Hysterectomy Family History : PE DVT, heart disease; no pancreatic cancer Personal/Social history : Non-smoker, occasional EtOH intake, retired pharmacist Admission Exam (Per Admitting) Constitutional GENERAL: Comfortable, pleasant, no respiratory distress SKIN: Normal color, warm HEENT: [employer] palpebral conjunctivae, no ptosis, dry buccal mucosa NECK : Supple, no tenderness CHEST : CTA, no tenderness HEART : RRR, no obvious murmurs ABDOMEN: Some distention, minimal epigastric tenderness EXTREMITIES : No LE swelling/tenderness, no other conspicuous deformities noted NEUROLOGIC : Coherent, no facial asymmetry, no other gross focality Discharge Data Consultations 01/31/21 22:15 ED Decision to Admit Stat 02/01/21 01:10 Consult Gastroenterology Routine 02/01/21 07:57 Consult Oncology Routine Procedures Performed ULTRASOUND RIGHT UPPER QUADRANT ABDOMEN CLINICAL HISTORY: Right upper quadrant abdominal pain. Elevated hepatic transaminases. COMPARISON STUDY: Abdominal ultrasound dated 01/29/2013. TECHNIQUE: Real-time, grayscale, and color flow sonography of the right upper quadrant of the abdomen was performed. Images are reviewed in the transverse and longitudinal planes. FINDINGS: Liver: The liver is heterogeneous in echotexture and infiltrated by numerous hypoechoic mass lesions. The largest is in the right lobe and measures up to 3.2 cm. There is no intrahepatic biliary ductal dilatation. The main portal vein is patent. Gallbladder: The gallbladder is normal in appearance. No gallstones are identified. There is no gallbladder wall thickening or pericholecystic fluid. A sonographic Man's sign is reportedly absent. The common bile duct measures up to 0.3 cm in diameter. Pancreas: Visualized portions of the pancreatic head and body are normal in appearance. The splenic vein is patent. Right kidney: Survey images of the right kidney demonstrate normal size and echotexture. There is no hydronephrosis. Ascites: None. IMPRESSION: 1. The liver is infiltrated by numerous mass lesions. This is new from 01/29/2013 and highly concerning for hepatic metastatic disease. Correlate with the patient's medical/oncological history. 2. There are no gallstones or evidence of acute cholecystitis. CT OF THE ABDOMEN AND PELVIS WITH CONTRAST CLINICAL HISTORY: Liver masses. COMPARISON STUDY: Right upper quadrant ultrasound January 29, 2013 and January 31, 2021. TECHNIQUE: Following IV administration of 119 mL of Optiray, axial images of the abdomen and pelvis were obtained from the lung bases to the proximal femurs. Images were reviewed in the axial, sagittal, and coronal planes. IV contrast was administered without complication. Automated exposure control was utilized for the study. A dose lowering technique was utilized adhering to the principles of ALARA. FINDINGS: A small segmental pulmonary embolus within the left lower lobe is noted on the chest CT which will be reported separately. Numerous bilobar hepatic lesions are noted. These measure up to 3.8 cm. These are new since ultrasound of January 29, 2013. Note is made of the heterogeneous pancreatic tail mass that measures 4.6 x 2.4 x 3.8 cm. This results in occlusion of the splenic vein. There is no biliary or pancreatic ductal dilatation. Associated perigastric varices are noted. The spleen, adrenal glands and kidneys are unremarkable. There is a 2.2 cm heterogeneous lesion along the right lateral aspect of the celiac axis. This favors a pathologic lymph node. A few additional mildly enlarged upper abdominal lymph nodes are noted. There is no evidence for a bowel obstruction. The superior mesenteric vein and artery are patent. There is mild narrowing of the main portal vein likely due to lymphadenopathy. No suspicious lesions are identified within the visualized skeletal structures. IMPRESSION: 1. 4.6 x 2.4 x 3.8 cm pancreatic tail lesion highly suggestive of pancreatic adenocarcinoma. Numerous hepatic metastases. 2. Several mildly enlarged upper abdominal lymph nodes suggestive of juan r spread of disease. 3. No bowel obstruction. 4. Segmental pulmonary embolus within the left lower lobe which is depicted on the chest CT. This will be reported separately. ACT 112: Negative or not required by law. CT ANGIOGRAPHY OF THE CHEST, PULMONARY EMBOLUS PROTOCOL CLINICAL HISTORY: PE, tachycardia, liver masses COMPARISON STUDY: Chest radiograph December 08, 2013 and January 31, 2021. TECHNIQUE: Following IV administration of 119 mL of Optiray, helical axial images of the chest were obtained utilizing the pulmonary embolus protocol. Maximal intensity projections and sagittal and coronal reformats were viewed on an independent 3D workstation. IV contrast was administered without complication. Automated exposure control was utilized for the study. A dose lowering technique was utilized adhering to the principles of ALARA. CT DOSE: 527.04 mGy.cm FINDINGS: There is a small segmental pulmonary embolus within the left lower lobe on image 175 of 316. No additional pulmonary emboli are identified. Mild cardiomegaly is noted. No pericardial effusion. There is no thoracic lymphadenopathy. There is no consolidation to suggest pneumonia. Groundglass opacities within the lungs favor atelectasis or air-trapping. Numerous hepatic masses are better depicted on the CT of the abdomen and pelvis which will be reported separately. Pancreatic tail mass is also better depicted on that exam. IMPRESSION: 1. Small segmental pulmonary embolus within the left lower lobe. 2. Hepatic metastases and a pancreatic tail mass which are better depicted on the CT of the abdomen and pelvis. This will be reported separately. ACT 112: Negative or not required by law. BILATERAL LOWER EXTREMITY VENOUS DOPPLER CLINICAL HISTORY: pe santacruz COMPARISON STUDY: Bilateral lower extremity venous Doppler ultrasound March 30, 2012. TECHNIQUE: Sonography of the deep venous system of the bilateral lower extremities was performed. Compression and augmentation were evaluated. FINDINGS: The bilateral common femoral, superficial femoral and popliteal veins were compressible. Augmentation was normal. Flow was shown within the deep calf vessels. IMPRESSION: No evidence of deep venous thrombus within the bilateral lower extremities. ACT 112: Negative or not required by law. [facility], [phone] CT Scan Report Patient: JULIO C HO Date: 01/31/21#: [id number]: [id number] STAcct ID:[id number]: Date: [address] [place] [address] Zip: [id number]: 2NSex: FRoom/Bed: [id number] Phy: Carlton Ott, MDDiagnosis: PEPri Phy: Dalila RomoChaparro, DOService Date: 02/03/21Fam Phy:Interpreting Phy: [facility]ensley [facility]: Pa Galeana MD Ordering Phy: Carlton Ott MD cc: ~ CT OF THE HEAD WITHOUT CONTRAST CLINICAL HISTORY: head trauma, r/o bleed COMPARISON STUDY: Head CT June 28, 2016. CT DOSE: 537.48 mGy.cm TECHNIQUE: Helical axial images of the head were obtained without IV contrast. Automated exposure control was utilized for the study. A dose lowering technique was utilized adhering to the principles of ALARA. FINDINGS: No acute intracranial hemorrhage, midline shift or mass effect is present. White matter hypodensities are unchanged and favor small vessel disease. The ventricular system is unremarkable. The basal cisterns are patent. No extra-axial collections are present. There are no findings to suggest acute dural sinus thrombosis or acute territorial infarct. No significant calvarial abnormalities are present. Visualized portions of the sinuses and mastoid air cells are clear. IMPRESSION: 1. No acute intracranial findings. 2. No calvarial fracture. ACT 112: Negative or not required by law. Hospital Course (1) Acute pulmonary embolism: Acute Left Lower Lobe PE in the setting of pancreatic mass probable malignancy -- CT chest: 1. Small segmental pulmonary embolus within the left lower lobe. 2. Hepatic metastases and a pancreatic tail mass which are better depicted on the CT of the abdomen and pelvis. This will be reported separately. -- no hypoxia Leg US: negative for DVT -- on Heparin IV-- > transitioned to Eliquis after discussion with [facility]/Onc Dr. Darden -- GI Dr. Shah consulted recommend outpatient EUS in 1-2 weeks given acute PE -- will need outpatient Hem/Onc follow up -- nausea, intermittent abdominal pain resolved advised to maintain soft diet Hypertension, slight elevated -- monitor as outpatient PFO with atrial septal aneurysm nonobstructive CAD as per records -- no cardiac symptoms OCD, mood disorder, at baseline CRI, creatinine better than baseline hypothyroidism, euthyroid Hyperglycemia likely secondary to prediabetes, hemoglobin A1c of 6.1 in 2015 -- A1c 6.4 DVT prophylaxis. Eliquis Full code Disposition d/c home ff up with PCP in 1 week ff up with GI and Hem/Onc in 1-2 weeks plan of care discussed with patient in detail and at length all questions answered she is understanding, agreeable, comfortable with the plan of care
[2021-02-08] MEDS ORDERED: APIXABAN 5 MG TABLET PO SCH (21:00)
== END 2021-02-03 17:20 | disposition home or self-care (01) | DRG 176 ==
LOC: ED 16:06 → 2N 23:42
DX: I12.9 Hypertensive chronic kidney disease with stage 1 through stage 4 chronic kidney disease, or unspecified chronic kidney disease; Z20.822 Contact with and (suspected) exposure to COVID-19; Z88.2 Allergy status to sulfonamides; C78.7 Secondary malignant neoplasm of liver and intrahepatic bile duct; K22.2 Esophageal obstruction; C25.2 Malignant neoplasm of tail of pancreas; F42.9 Obsessive-compulsive disorder, unspecified; N18.30 Chronic kidney disease, stage 3 unspecified; I25.10 Atherosclerotic heart disease of native coronary artery without angina pectoris; Z79.899 Other long term (current) drug therapy; Z79.82 Long term (current) use of aspirin; F39 Unspecified mood [affective] disorder; R73.9 Hyperglycemia, unspecified; I26.99 Other pulmonary embolism without acute cor pulmonale; M81.0 Age-related osteoporosis without current pathological fracture; E55.9 Vitamin D deficiency, unspecified; E03.9 Hypothyroidism, unspecified; Q21.1 Atrial septal defect; I25.3 Aneurysm of heart; C77.2 Secondary and unspecified malignant neoplasm of intra-abdominal lymph nodes; Z79.890 Hormone replacement therapy; Z88.8 Allergy status to other drugs, medicaments and biological substances